=== PATIENT | female | born 1965 | race Caucasian/White ===

== ENCOUNTER 2021-04-02 10:48 | Emergency (ER) | payer MEDICAID, SELFPAY ==
--- NOTE | ~2021-04-02 | CT_ITS ---
EXAMINATION: CT LUMBAR SPINE WITHOUT CONTRAST CLINICAL INFORMATION: History of fall. Lumbar spine tenderness. COMPARISON: None TECHNIQUE: Noncontrast multidetector CT imaging examination of the lumbar spine was performed. Axial images are presented at 1.5 mm and 2 mm slice thickness. Coronal and sagittal reformatted images were generated and reviewed. This CT examination was performed using dose optimization techniques as appropriate, variously including the following: *Automated exposure control *Adjustment of mA and/or kV according to patient size (this includes techniques or standardized protocols for targeted exams where dose is matched to indication/reason for exam; i.e. extremities or head) *Use of iterative reconstruction technique DLP 1239 mGy-cm (total, for topograms, as well as CT imaging exams of cervical and lumbar spine) FINDINGS: There are 5 segmented lumbar vertebra. The lumbar vertebra have normal height and alignment. No fractures in the anterior or posterior elements. No focal lytic or blastic lesions. The disc spaces are maintained. The facet joints are unremarkable. Multilevel vertebral osteophyte formation of the lumbar spine. No evidence of spinal canal or neural foraminal stenosis. The sacrum and sacroiliac joints are normal. No acute soft tissue abnormalities. No paraspinal hematoma. The visualized retroperitoneal structures are unremarkable. Abdominal aorta is normal in caliber. No retroperitoneal hemorrhage. No para-aortic lymphadenopathy. CT/CT lumbar spine wo con IMPRESSION: * Mild spondylosis of the lumbar spine. * No acute abnormalities. No fracture or subluxation in the lumbar spine or sacrum.
--- NOTE | ~2021-04-02 | CT_ITS ---
EXAMINATION: CT CERVICAL SPINE WITHOUT CONTRAST CLINICAL INFORMATION: Fall injury. Cervical spine tenderness. COMPARISON: No priors. TECHNIQUE: Noncontrast CT of the cervical spine. Sagittal and coronal images as well as axial reconstructions through the disc spaces were provided. This CT examination was performed using dose optimization techniques as appropriate, variously including the following: *Automated exposure control *Adjustment of mA and/or kV according to patient size (this includes techniques or standardized protocols for targeted exams where dose is matched to indication/reason for exam; i.e. extremities or head) *Use of iterative reconstruction technique DLP: 1239 mGy-cm FINDINGS: There is reversal of the expected cervical lordosis. The occipital condyles are properly aligned on the C1 lateral masses. The C1-C2 lateral masses are properly aligned. The dens is intact. The atlantodens interval is preserved. Facets are normally aligned without evidence of perched or locked facets. Transverse processes are intact. Transverse foramina are intact. No evidence of listhesis. Vertebral body heights are preserved. Anterior marginal endplate and posterior marginal endplate osteophytes are noted at C5 and C6. Mild C5-C6 disc height loss. The remaining intervertebral disc spaces are maintained. No fracture is seen. No prevertebral soft tissue swelling. The spinal canal is grossly unremarkable within the limits of CT scanning technique. Level specific observations are as follows: Lung apices are clear. Visualized intracranial contents are unremarkable. Visualized skull base is intact. CT/CT cervical spine wo con IMPRESSION: 1. No acute traumatic fracture or listhesis of the cervical spine. 2. Reversal of expected and cervical lordosis. Mild C5-C6 spondylosis and degenerative disc disease
--- NOTE | ~2021-04-02 | XR_ITS ---
EXAMINATION: XR ELBOW, RIGHT CLINICAL INFORMATION: Fall. Pain COMPARISON: None TECHNIQUE: AP, lateral, and oblique views of the right elbow. FINDINGS: The bones and soft tissues are normal. No fracture or joint effusion. Alignment is anatomic. Joint spaces are maintained. XR/XR elbow RT 2V IMPRESSION: Normal right elbow.
[2021-04-02 10:54] VITALS: BP 134/90; PULSE 88; RESP 16; TEMP 36.7; O2SAT 97; BMI 36.6
--- NOTE | 2021-04-02 11:09 | PC.NURSE ---
pt requests pulmonary function technologist
--- NOTE | 2021-04-02 11:09 | ED.GENADULT ---
HPI - General Adult General Chief complaint: Fall Stated complaint: fall Time Seen by Provider: 04/02/21 11:09 Source: patient Mode of arrival: ambulatory Limitations: no limitations History of Present Illness HPI narrative: Patient is here today complaining of upper and lower back pain. Patient reports that she was shopping in the grocery store yesterday when she slipped on a grape and fell backwards. She reports hitting her upper back, sustaining abrasion to her right mid back, and hitting her right elbow. Denies hitting head. Complains of neck, right elbow and lower back pain. Denies any tingling sensation to upper or lower extremities, however reports to have radiating pain going down her legs. Denies any SOB, chest pain. Related Data Previous Rx's Medication Instructions Recorded cyclobenzaprine 10 mg PO BID PRN #10 tab 04/02/21 ibuprofen 800 mg PO Q8H PRN #20 tab 04/02/21 oxycodone 5 mg PO Q4-6H PRN #5 tab 04/02/21 Allergies Allergy/AdvReac Type Severity Reaction Status Date / Time dog dander [DOGS] Allergy Unknown RASH Unverified 08/12/20 14:58 dog dander Allergy Unknown Unverified 03/12/19 00:00 nut - unspecified [nut] Allergy Unknown RASH Unverified 08/12/20 14:58 pollen Allergy Unknown Unverified 03/12/19 00:00 CARPETS Allergy Unknown RASH Uncoded 08/12/20 14:58 Review of Systems Review of Systems: Constitutional : No Weight loss, No Fever, No Chills, No Night Sweats, No Fatigue, No Malaise ENT/Mouth : No Hearing loss, No Ear Pain, No Nasal Congestion, No Sinus Pain, No Hoarseness, No sore throat, No Rhinorrhea, No Swallowing Difficulty Eyes: No Eye Pain, No Swelling, No Redness, No Foreign Body, No Discharge, No Vision Changes Cardiovascular : No Chest Pain, No SOB, No Dyspnea on Exertion, No Orthopnea, No Edema, No Palpitations Respiratory : No Cough, No Sputum, No Wheezing, No Smoke Exposure, No Dyspnea Gastrointestinal : No Nausea, No Vomiting, No Diarrhea, No Constipation, No abdominal Pain, No Hematochezia, No Melena Genitourinary : no irregular bleeding, No Dysuria, No Urinary Frequency, No Hematuria, No Urinary Incontinence, No Urgency, No Flank Pain, No Urinary Flow Changes, No Hesitancy Musculoskeletal : No joint pain, No Myalgias, No Joint Swelling, neck pain and lower back pain Skin : No Skin Lesions, No rash, abrasion to her right upper back Neuro : No Weakness, No Numbness, No Paresthesias, No Loss of Consciousness, No Dizziness, No Headache Psych : No Anxiety/Panic, No Depression, No SI/HI/AH/VH, No Social Issues, Heme/Lymph: No Bruising, No Bleeding,No Lymphadenopathy Endocrine : No Polyuria, No Polydipsia, No Temperature Intolerance Yes all other systems are reviewed and are negative PMFSH Social History Social History Advance Directives: No Advance Directives Information Provided: No Patient : No Physical Exam Vital Signs: Vital Signs: Last Vital Signs Temp 98.8 F 04/02/21 13:29 Pulse 65 04/02/21 13:29 Resp 16 04/02/21 13:29 BP 119/66 04/02/21 13:29 Pulse Ox 98 04/02/21 13:29 Body Mass Index 36.6 Const: General: healthy appearing, no acute distress and well developed Nutritional Appearance: well nourished Orientation/consciousness: patient oriented x3 Neck: Neck: Yes normal visual inspection, Yes full ROM and Yes trachea midline Thyroid: Thyroid normal Resp: Auscultation: clear to auscultation bilaterally Cardio: Rate: regular rate Rhythm: regular rhythm GI: Inspection: Yes normal to inspection and No distended Palpation (GI): No hepatosplenomegaly present Auscultation: normal bowel sounds : General: Yes CVA tenderness Back/Spine/Pelvis: Back: CVA tenderness Cervical Spine: cervical ROM normal Thoracic/Lumbar Spine: lumbar spinal tenderness Skin: General skin exam: elasticity normal, turgor normal and dry skin Neuro: General: patient oriented x3 Extrem: General: Yes normal to inspection, Yes capillary refill normal and Yes other (Right elbow tenderness) Psych: Appearance: grossly normal Mental Status: mental status grossly normal Speech and movement: Normal speech and movement present and Clear speech present Affect: normal affect Attitude: cooperative Course Course Course Narrative: 55-year-old female here today after falling yesterday in the grocery store. Patient reports that she fell backwards slipping on a grape, hitting her back on a shelf, landing on her right elbow. Denies hitting head. Complaints of cervical and lumbar spine tenderness, with some radiation to her lower extremity. Denies any tingling sensation. Reevaluation(s) Reevaluation #1: Patient re-evaluated, no change from previous exam. Both CT scan of spine and lumbar negative for any Accute processes. We will send patient home with scripts for pain management. She can follow up with her PCP for further treatment and possible physical therapy. All results discussed with patient. Radiology reports given to patient so she can bring that to her PCP. She is agreeable to plan of care and verbalizes understanding of instructions. She was given the opportunity to ask questions and all questions answered. Discharge Plan Discharge Clinical Impression: Accident due to mechanical fall without injury, Back pain Patient Disposition: Home, Self-Care Instructions: Back Pain (ED), Fall Prevention (ED) Additional Instructions: You were seen here today after sustaining a fall at the grocery store. You were medicated with muscle relaxant. Your x-rays and your CT scans were all normal. You will be given script for anti-inflammatory (ibuprofen), Oxycodone and muscle relaxer (cyclobenzaprine). Please do not operate heavy machinery or drive while taking oxycodone or the muscle relaxer. Please follow-up with your PCP in 2-3 days. Please return to emergency department if your symptoms get worse or if you experience any other concerning symptoms. Prescriptions: New ibuprofen 800 mg tablet 800 mg PO Q8H PRN (Reason: pain) Qty: 20 RF: 0 oxycodone 5 mg tablet 5 mg PO Q4-6H PRN (Reason: pain) Qty: 5 RF: 0 cyclobenzaprine 10 mg tablet 10 mg PO BID PRN (Reason: muscle spasm) Qty: 10 RF: 0 Interventions: ED Discharge Assessment Last Done: 04/02/21 15:40 Discharge Date/Time: 04/02/21 15:41
--- NOTE | 2021-04-02 11:19 | PC.NURSE ---
+scrape saucedo right side of mid back
[2021-04-02] MEDS: Cyclobenzaprine HCl 10 MG TABLET PO (11:41)
[2021-04-02 13:29] VITALS: BP 119/66; PULSE 65; RESP 16; TEMP 37.1; O2SAT 98
--- NOTE | 2021-04-02 15:21 | PC.NURSE ---
[employer] [employer] ARIS AND PT AWARE ALL TEST RESULTS, AWAITING DC INSTRUCTIONS
== END 2021-04-02 15:41 | disposition home or self-care (01) ==
PROVIDERS: Emergency Provider Emergency Medicine
DX: S20.411A Abrasion of right back wall of thorax, initial encounter (principal); W18.31XA Fall on same level due to stepping on an object, initial encounter; M54.6 Pain in thoracic spine; M54.5 Low back pain; Y93.89 Activity, other specified; Y92.512 Supermarket, store or market as the place of occurrence of the external cause; Y99.9 Unspecified external cause status
CPT/HCPCS: 72125; 72131; 73070; 99284

== ENCOUNTER 2022-02-06 13:04 | Emergency (ER) | payer MEDICAID, SELFPAY ==
[2022-02-06 13:56] VITALS: BP 107/49; PULSE 84; RESP 17; TEMP 36.6; O2SAT 96; BMI 49.8
[2022-02-06 16:06] LABS: MANUAL DIFF FLAG NO
[2022-02-06 16:08] LABS: Basophils Percent Auto 0.3 % (0-2); Eosinophils Absolute Auto 0.1 X10*3/uL (0.0-0.4); Eosinophils Percent Auto 1.1 % (0-4); Hematocrit 44.1 % (37.0-47.0); Hemoglobin 13.7 g/dl (12.0-16.0); Imm Gran Abs Auto 0.02 X10*3/uL (0.00-0.03); Imm Gran Pct Auto 0.3 % (0.0-0.4); Lymphocytes Absolute Auto 2.3 X10*3/uL (1.2-4.9); Lymphocytes Percent Auto 35.3 % (20-40); Mean Corpuscular HGB Conc 31.1 g/dl (31.0-35.0); Mean Corpuscular Hemoglobin 25.5 pg (27.0-33.0); Mean Platelet Volume 10.2 fL (9.4-12.3); Monocytes Absolute Auto 0.8 X10*3/uL (0.1-1.2); Monocytes Percent Auto 12.7 % (2-11); Neutrophils Absolute Auto 3.2 x10*3/uL (2.0-8.3); Neutrophils Percent Auto 50.3 % (45-73); Platelet Count 225 X10*3/uL (160-400); Red Blood Count 5.38 X10*6/uL (4.20-5.50); Red Cell Distribution Width 13.8 % (11.0-16.0); White Blood Count 6.4 X10*3/uL (4.8-10.8)
[2022-02-06 16:34] LABS: Alanine Aminotransferase 65 U/L (0-31); Albumin Level 4.1 g/dL (3.5-5.0); Alkaline Phosphatase 85 U/L (39-117); Anion Gap 11 (12-20); Aspartate Amino Transferase 35 U/L (5-31); Bilirubin Total 0.3 mg/dL (0.0-1.0); Blood Urea Nitrogen 9 mg/dL (9-16); Calcium 8.5 mg/dL (8.4-10.2); Carbon Dioxide 26 mmol/L (22-29); Chloride 106 mmol/L (96-108); Estimated Glomerular Filt Rate > 60; Glucose Random 114 mg/dL (60-115); Potassium 3.9 mmol/L (3.3-5.1); Sodium 139 mmol/L (135-145); Total Protein 7.3 g/dL (6.5-8.0)
[2022-02-06 21:16] VITALS: BP 132/62; PULSE 71; RESP 16; TEMP 36.7; O2SAT 97
--- NOTE | 2022-02-06 21:16 | ED_ITS ---
HPI - Nausea/Vomiting/Diarrhea General Chief complaint: Nausea/Vomiting/Diarrhea Stated complaint: diarrhea fever vomiting Time Seen by Provider: 02/06/22 21:13 Source: patient Mode of arrival: ambulatory Limitations: no limitations History of Present Illness HPI Narrative: Patient is a 56 year old female presenting to the emergency department today with nausea, vomiting, and diarrhea that has resolved. Patient states that yesterday she had nausea, vomiting, and dirrhea. Patient states that she is still nauseous but the other symptoms have resolved. Patient states that the entirety of the rest of her family was sick with the same symptoms but they have gotten better. Patient denies any current dizziness, lightheadedness, abdominal pain, vomiting, fever, chills, blurry vision, double vision, loss of vision, chest pain, difficulty breathing, shortness of breath, back pain, night sweats, pain with urination, increased urinary frequency, increased urinary urgency, blood in her urine or stool, syncope or a near syncopal episode, recent trauma or falls, bowel incontinence, bladder incontinence, bowel retention, bladder retention, or any other complaints at this time. MD elicited complaint: nausea, vomiting and diarrhea Onset (ago): day(s) (1) Associated nausea: Yes Associated abdominal pain: No Location of pain: none Related Data Previous Rx's Medication Instructions Recorded cyclobenzaprine 10 mg tablet 10 mg PO BID PRN #10 tab 04/02/21 ibuprofen 800 mg tablet 800 mg PO Q8H PRN #20 tab 04/02/21 oxycodone 5 mg tablet 5 mg PO Q4-6H PRN #5 tab 04/02/21 ondansetron 4 mg disintegrating 4 mg PO Q8H 3 Days #9 tab 02/06/22 tablet Allergies Allergy/AdvReac Type Severity Reaction Status Date / Time dog dander [DOGS] Allergy Unknown RASH Unverified 08/12/20 14:58 dog dander Allergy Unknown Unverified 03/12/19 00:00 nut - unspecified [nut] Allergy Unknown RASH Unverified 08/12/20 14:58 pollen Allergy Unknown Unverified 03/12/19 00:00 CARPETS Allergy Unknown RASH Uncoded 08/12/20 14:58 Review of Systems Constitutional: Constitutional: Reports no additional constitutional complaints, Denies chills, Denies fever(s) and Denies night sweats Eyes: Eyes: Reports no additional eye complaints, Denies blurry vision, Denies change in vision, Denies diplopia, Denies eye discharge, Denies loss of vision and Denies eye pain ENT: Denies dizziness Cardiovascular: Cardiovascular: Reports no additional cardiovascular complaints, Denies chest pain, Denies lightheadedness, Denies Loss of Consciousness and Denies dyspnea Respiratory: Respiratory: Reports no additional respiratory complaints and Denies dyspnea Gastrointestinal: Gastrointestinal: Reports no additional gastrointestinal complaints, Denies abdominal pain, Denies melena, Denies hematochezia, Denies change in bowel habits, Denies change in stool character and Reports nausea Genitourinary: Genitourinary: Denies hematuria, Denies urinary frequency, Denies dysuria, Denies urinary incontinence, Denies urinary hesitancy and Denies urinary urgency Musculoskeletal: Musculoskeletal: Reports no additional musculoskeletal complaints, Denies numbness and Denies tingling Neurologic: Denies dizziness, Denies loss of vision, Denies numbness and Denies tingling Psychiatric: Psychiatric: Reports no additional psychiatric complaints Endocrine: Endocrine: Reports no additional endocrine complaints Hematologic/Lymphatic: Hematologic/Lymphatic: Reports no additional hematologic/lymphatic complaints Allergic/Immunologic: Allergic/Immunologic: Reports no additional allergic/immunologic complaints PMFSH Past Medical History Attestation statement: The following information was validated with the patient. Source: old records reviewed Medical History Active asthma Social History Social History Advance Directives: No Advance Directives Information Provided: No Physical Exam Vital Signs: Vital Signs: Last Vital Signs Temp 98.0 F 02/06/22 21:16 Pulse 71 02/06/22 21:16 Resp 16 02/06/22 21:16 BP 132/62 02/06/22 21:16 Pulse Ox 97 02/06/22 21:16 BMI result Body Mass Index 49.8 Const: General: cooperative, no acute distress, alert and awake Nutritional Appearance: well nourished Orientation/consciousness: patient oriented x3 Limitations: no limitations HENMT: Head: Yes normal to inspection and Yes atraumatic Ears: hearing grossly normal bilaterally and external ears normal General nose exam: Normal external nose present, no nasal discharge noted and no epistaxis Face and sinus: Yes normal facial exam, No abrasion and No laceration Mouth: Normal oral and palatal mucosa present, no drooling and no muffled voice Eyes: General: appearance normal, both eyes and all related structures Periorbital: periorbital findings normal Eyelids: Yes eyelids normal Co njunctivae: conjunctivae normal Pupils: Equal, round and reactive pupils present EOM: EOMs intact bilaterally Neck: Neck: Yes normal visual inspection, Yes full ROM and Yes no lymp hadenopathy Chest: Chest palpation & inspection: normal inspection of the chest Resp: Effort & Inspection: normal respiratory effort and able to speak in complete sentences Auscultation: clear to auscultation bilaterally Cardio: Rate: regular rate Rhythm: regular rhythm GI: Inspection: Yes normal to inspection Palpation (GI): Soft to palpation, not firm, nontender, no guarding and not rigid Neuro: General: patient oriented x3 and moves all extremities Cranial nerves: Yes Equal, round and reactive pupils present Cognition (Neuro): normal cognition Motor exam (neuro): 5/5 motor strength present throughout Sensory Exam: Normal double simultaneous stimulation for sensation Coordination: [id number] test normal Extrem: General: Yes normal to inspection, Yes full ROM and Yes capillary refill normal Psych: Appearance: grossly normal Mental Status: mental status grossly n ormal Affect: normal affect Attitude: cooperative Thought process: Normal thought process present Thought content: Normal thought content present Insight: Good insight present (Psych) MDM - Nausea/Vomiting/Diarrhea MDM Narrative Medical decision making narrative: Patient is a 56 year old female presenting to the emergency department today with nausea and resolved diarrhea and vomiting. Patient's physical exam was unremarkable. Patient's blood work was unremarkable. Patient's urine showed no acute process. I explained my physical exam findings as well as all test results to the patient. I answered all questions asked by the patient. Patient received PO Zofran which she stated helped her symptoms significantly. I stressed the importance of the patient taking her medication as prescribed. I stressed the importance of the patient following up with her primary care provider. I stressed the importance of the patient returning to the emergency department immediately if her symptoms were to worsen or if she were to develop any dizziness, shortness of breath, difficulty breathing, chest pain, blurry vision, loss of vision, nausea, vomiting, abdominal pain, fever, chills, back pain, or any other complaints. Patient verbalized agreement and understanding with this treatment plan and discharge. Differential Diagnosis Differential diagnosis: Likely gastroenteritis Medical Records Attestation: I reviewed the patient's medical records. Lab Data Attestation: I reviewed the patient's lab results. Result diagrams: 02/06/22 16:01 02/06/22 16:01 Labs: Lab Results 02/06/22 02/06/22 Range/Units 16:01 16:01 WBC 6.4 (4.8-10.8) X10*3/uL RBC 5.38 (4.20-5.50) X10*6/uL Hgb 13.7 (12.0-16.0) g/dl Hct 44.1 (37.0-47.0) % MCV 82.0 (80.0-98.0) fL MCH 25.5 L (27.0-33.0) pg MCHC 31.1 (31.0-35.0) g/dl RDW 13.8 (11.0-16.0) % Plt Count 225 (160-400) X10*3/uL MPV 10.2 (9.4-12.3) fL Immature Gran % (Auto) 0.3 (0.0-0.4) % Neut % (Auto) 50.3 (45-73) % Lymph % (Auto) 35.3 (20-40) % [place] % (Auto) 12.7 H (2-11) % Eos % (Auto) 1.1 (0-4) % Baso % (Auto) 0.3 (0-2) % Lymph # (Auto) 2.3 (1.2-4.9) X10*3/uL [place] # (Auto) 0.8 (0.1-1.2) X10*3/uL Eos # (Auto) 0.1 (0.0-0.4) X10*3/uL Baso # (Auto) 0.0 (0.0-0.2) X10*3/uL Abs Immat Gran (auto) 0.02 (0.00-0.03) X10*3/uL Absolute Neuts (auto) 3.2 (2.0-8.3) x10*3/uL Absolute Nucleated RBC 0.000 (0.0-0.012) X10*3/uL Nucleated RBC % (auto) 0.0 (0.0-0.2) /100WBC Sodium 139 (135-145) mmol/L Potassium 3.9 (3.3-5.1) mmol/L Chloride 106 (96-108) mmol/L Carbon Dioxide 26 (22-29) mmol/L Anion Gap 11 L (12-20) BUN 9 (9-16) mg/dL Creatinine 0.76 (0.5-1.4) mg/dL Estim Creat Clear Calc 122.0 Estimated GFR > 60 Random Glucose 114 (60-115) mg/dL Calcium 8.5 (8.4-10.2) mg/dL Total Bilirubin 0.3 (0.0-1.0) mg/dL AST 35 H (5-31) U/L ALT 65 H (0-31) U/L Alkaline Phosphatase 85 (39-117) U/L Total Protein 7.3 (6.5-8.0) g/dL Albumin 4.1 (3.5-5.0) g/dL Discharge Plan Discharge Clinical Impression: Gastroenteritis, Nausea & vomiting Patient Disposition: Home, Self-Care Instructions: Gastroenteritis (ED), Acute Nausea and Vomiting (ED), Enteritis (ED) Additional Instructions: Follow up with your primary care provider. Return to the emergency department immediately if your symptoms worsen or if you develop any dizziness, shortness of breath, difficulty breathing, chest pain, blurry vision, loss of vision, nausea, vomiting, abdominal pain, fever, chills, back pain, or any other complaints. Prescriptions: New ondansetron 4 mg tablet,disintegrating 4 mg PO Q8H 3 Days Qty: 9 0RF No Action ibuprofen 800 mg tablet 800 mg PO Q8H PRN (Reason: pain) Qty: 20 0RF oxycodone 5 mg tablet 5 mg PO Q4-6H PRN (Reason: pain) Qty: 5 0RF Rx Instructions: Patient may request fewer tablets than prescribed cyclobenzaprine 10 mg tablet 10 mg PO BID PRN (Reason: muscle spasm) Qty: 10 0RF Referrals: Physician,Unknown J [Primary Care Provider] - 2 days (Follow up with your primary care provider.) Interventions: ED Discharge Assessment Last Done: 02/06/22 21:30 Discharge Date/Time: 02/06/22 21:32 Print Language: Andorran
[2022-02-06] MEDS: Ondansetron ODT 4 MG TAB.RAPDIS TRANSLINGU (21:25)
== END 2022-02-06 21:32 | disposition home or self-care (01) ==
PROVIDERS: Emergency Provider Internal Medicine
DX: K52.9 Noninfective gastroenteritis and colitis, unspecified (principal); R11.2 Nausea with vomiting, unspecified
CPT/HCPCS: 36415; 80053; 85025; 99283; 99284

== ENCOUNTER 2022-06-21 12:33 | Outpatient (REF) | payer MEDICAID, SELFPAY ==
--- NOTE | ~2022-06-21 | US_ITS ---
EXAMINATION: US PELVIS CLINICAL INFORMATION: Postmenopausal bleeding. COMPARISON: None TECHNIQUE: Ultrasound of the pelvis is performed using both transabdominal and transvaginal transducers along with Doppler. Transvaginal imaging is performed due to inadequate visualization transabdominally. FINDINGS: UTERUS: The uterus is anteverted, anteflexed and measures 7.1 cm in length, 3.6 mL in AP and 3.8 cm in transverse dimension. The double wall endometrial thickness is not visualized well. The uterus is smooth in contour and has heterogeneous echogenicity. There is a hypoechoic lesion along the subserosal/intramural junction upper anterior body of uterus. It measures 1.8 x 1.6 x 1.6 cm. There is a second lesion seen in 2011 is not seen at this time. There are small nabothian cysts seen in the cervix. ADNEXA: The right ovary is visualized. There is normal color flow to the adnexa. There is no ovarian torsion. There is no pelvic ascites or fluid collection. Right ovary measures 1.8 x 2.1 x 1.4 cm and volume 2.8 mL. Previously it measured 2.8 x 1.6 x 1.7 cm. Left ovary is not visualized. US/US pelvic and transvaginal IMPRESSION: Heterogeneous-appearing uterus with a solitary fibroid. Previous fibroid in the right uterus is not seen at this time. Nabothian cysts in the cervix. Unremarkable right ovary. Left ovary is not seen.
== END 2022-06-21 12:34 | disposition home or self-care (01) ==
LOC: HO.US 12:33
PROVIDERS: Visit Provider Advanced Practice Midwife
DX: N95.0 Postmenopausal bleeding (principal)
CPT/HCPCS: 76830; 76856

== ENCOUNTER 2022-06-23 11:55 | Outpatient (REF) | payer MEDICAID, SELFPAY ==
--- NOTE | ~2022-06-23 | MM_ITS ---
EXAMINATION: MM SCREENING DIGITAL BREAST TOMOSYNTHESIS, BILATERAL CLINICAL INFORMATION: Screening. Asymptomatic. The lifetime risk of breast cancer based on the Tyrer-Cuzick Model is 11%. COMPARISON: Mammography: 08/19/2018, 08/02/2017, 03/01/2016, 02/17/2016 TECHNIQUE: Digital breast tomosynthesis is performed in both the craniocaudal and mediolateral oblique views along with computer-aided detection (CAD). Synthesized 2D images are generated from the tomosynthesis. FINDINGS: There are scattered areas of fibroglandular density (ACR BI-RADS breast composition Category b). There is fine fibronodular parenchymal pattern similar to prior exams. No significant mass or architectural abnormality or developing density. No abnormal calcifications. The axilla and skin contours are unremarkable. MM/MM tomosynthesis screening BI IMPRESSION: No mammographic evidence of malignancy. ASSESSMENT: BI-RADS 1: Negative RECOMMENDATION: Routine annual mammography screening. This patient's information was entered into a reminder system with a target due date for their next mammogram.
== END 2022-06-23 11:56 | disposition home or self-care (01) ==
LOC: HO.MAMMO 11:55
PROVIDERS: Visit Provider Advanced Practice Midwife
DX: Z12.31 Encounter for screening mammogram for malignant neoplasm of breast (principal)
CPT/HCPCS: 77063; 77067

== ENCOUNTER 2024-01-09 11:29 | Outpatient (REF) | payer MEDICAID, SELFPAY ==
--- NOTE | ~2024-01-09 | XR_ITS ---
EXAMINATION: XR KNEE, LEFT CLINICAL INFORMATION: Pain in left knee COMPARISON: None available. TECHNIQUE: Four views of the left knee. FINDINGS: No fracture or joint effusion. Alignment is anatomic. There is minimal marginal spurring cause the patella laterally and suprapatellar fullness due to small joint effusion. Joint spaces are maintained. No abnormal soft tissue calcification. XR/XR knee LT 4V IMPRESSION: Mild degenerative changes and small joint effusion
== END 2024-01-09 11:30 | disposition home or self-care (01) ==
LOC: HO.HHCX 11:29
PROVIDERS: Visit Provider Registered Nurse
DX: M25.562 Pain in left knee (principal)
CPT/HCPCS: 73564

== ENCOUNTER 2024-02-26 18:42 | Outpatient (REF) | payer MEDICAID, SELFPAY | END 2024-02-26 18:43 | disposition home or self-care (01) | LOC: HO.HHCLNP 18:42 | PROVIDERS: Visit Provider Nurse Practitioner Family | DX: L02.91 Cutaneous abscess, unspecified (principal) | CPT/HCPCS: 87070; 87077; 87186; 87205 ==

== ENCOUNTER 2024-08-08 12:53 | Outpatient (REF) | payer MEDICAID, SELFPAY ==
--- NOTE | ~2024-08-08 | MM_ITS ---
EXAMINATION: MM SCREENING DIGITAL BREAST TOMOSYNTHESIS, BILATERAL CLINICAL INFORMATION: Screening. Asymptomatic. COMPARISON: Mammography: Comparison is made with available priors TECHNIQUE: Digital breast mammography with tomosynthesis is performed in both the craniocaudal and mediolateral oblique views along with computer-aided detection (CAD). FINDINGS: The breasts are heterogeneously dense, which may obscure small masses (ACR BI-RADS breast composition Category c). There are no significant masses, abnormal calcifications, or other abnormalities. MM/MM tomosynthesis screening BI IMPRESSION: No mammographic evidence of malignancy. ASSESSMENT: BI-RADS BI-RADS 1 - Negative RECOMMENDATION: Routine annual mammography screening. 1 year F/U This examination should not preclude the clinical evaluation of a suspicious palpable abnormality. This patient's information was entered into a reminder system with a target due date for their next mammogram. Electronically signed by: Adela London DO 08/21/2024 08:29 PM EDT
== END 2024-08-08 12:54 | disposition home or self-care (01) ==
LOC: HO.MAMMO 12:53
PROVIDERS: PCP Registered Nurse; Visit Provider Registered Nurse
DX: Z12.31 Encounter for screening mammogram for malignant neoplasm of breast (principal)
CPT/HCPCS: 77063; 77067

== ENCOUNTER → 2024-08-08 13:30 | Outpatient (BNV) | payer MEDICAID, SELFPAY | PROVIDERS: PCP Registered Nurse; Visit Provider Internal Medicine | DX: Z12.31 Encounter for screening mammogram for malignant neoplasm of breast (principal) | CPT/HCPCS: 77063; 77067 ==

== ENCOUNTER 2024-09-11 12:41 | Emergency (ER) | payer MEDICAID, SELFPAY ==
--- NOTE | ~2024-09-11 | XR_ITS ---
EXAMINATION: XR CHEST CLINICAL INFORMATION: Cough COMPARISON: None available. TECHNIQUE: 2 views of the chest were obtained. FINDINGS: No significant abnormality is noted involving the heart, lungs, mediastinum, bony thorax or soft tissues. XR/XR chest 2V IMPRESSION: Unremarkable examination. Electronically signed by: Delano Cartagena MD 09/11/2024 04:10 PM EDT RP
--- NOTE | 2024-09-11 12:43 | ECG_ITS ---
Test Reason : CHEST PAIN Blood Pressure : / mmHG Vent. Rate : 065 BPM Atrial Rate : 065 BPM P-R Int : 176 ms QRS Dur : 074 ms QT Int : 410 ms P-R-T Axes : 042 006 068 degrees QTc Int : 426 ms Normal sinus rhythm Cannot rule out Anterior infarct (cited on or before 29-MAR-2020) ; could be related to body habitus and lead placement. Abnormal ECG When compared with ECG of 29-MAR-2020 14:42, No significant change was found Referred By: Generic ED Physician Electronically Signed By:CASSI WARD
[2024-09-11 13:13] VITALS: BP 113/47; PULSE 76; RESP 16; TEMP 36.2; O2SAT 96; BMI 37.3
--- NOTE | 2024-09-11 13:15 | ED.CHESTPAIN ---
HPI - Chest Pain General Chief Complaint: Chest Pain Stated Complaint: Chest pain Related Data Previous Rx's ?Medication ?Instructions ?Recorded cyclobenzaprine 10 mg tablet 10 mg PO BID PRN muscle spasm #10 04/02/21 tabs ibuprofen 800 mg tablet 800 mg PO Q8H PRN pain #20 tabs 04/02/21 oxycodone 5 mg tablet 5 mg PO Q4-6H PRN pain #5 tabs 04/02/21 ondansetron 4 mg disintegrating 4 mg PO Q8H 3 days #9 tabs 02/06/22 tablet Allergies Allergy/AdvReac Type Severity Reaction Status Date / Time dog dander [DOGS] Allergy Unknown RASH Verified 09/11/24 13:19 nut - unspecified [nut] Allergy Unknown RASH Verified 09/11/24 13:19 pollen extracts Allergy Unknown Unknown Verified 09/11/24 13:19 CARPETS Allergy Unknown RASH Uncoded 08/12/20 14:58 PMFSH Past Medical History Medical History Active asthma Social History Social History Advance Directives: No Advance Directives Information Provided: No Physical Exam Vital Signs: Vital Signs: Last Vital Signs Temp 97.2 F 09/11/24 13:13 Pulse 76 09/11/24 13:13 Resp 16 09/11/24 13:13 BP 113/47 L 09/11/24 13:13 Pulse Ox 96 09/11/24 13:13 O2 Del Method Room Air 09/11/24 13:13 BMI result Body Mass Index 37.3 Course Course Course Narrative: This is a Rapid Medical Examination (RME) performed by Farrah Hernandez PA-C in triage. Full HPI, ROS, assessment and treatment plan per primary provider in the Main ED. 58-year-old Malay-speaking female GERD and seasonal allergies who presents to the ER for evaluation of stabbing left sided chest pain that started a couple of days ago and subsided. now she is reporting intermittent right sided electricity feeling in the chest that started last night. no associated SOB or nausea but she reports intermittent dizziness. no history of similar symptoms in the past. VSS in triage. nontender chest wall. RRR and lungs are clear, no distress. no noted peripheral edema. speech and cognition are normal. Plan: EKG, CXR, labs Medical Decision Making Lab Data 09/11/24 13:42 09/11/24 13:42 Labs: Lab Results 09/11/24 09/11/24 Range/Units 13:42 13:45 WBC 7.3 (4.8-10.8) X10*3/uL RBC 5.08 (4.20-5.50) X10*6/uL Hgb 13.2 (12.0-16.0) g/dl Hct 42.1 (37.0-47.0) % MCV 82.9 (80.0-98.0) fL MCH 26.0 L (27.0-33.0) pg MCHC 31.4 (31.0-35.0) g/dl RDW 13.8 (11.0-16.0) % Plt Count 247 (160-400) X10*3/uL MPV 10.7 (9.4-12.3) fL Immature Gran % (Auto) 0.1 (0.0-0.4) % Neut % (Auto) 58.7 (45-73) % Lymph % (Auto) 32.7 (20-40) % [place] % (Auto) 6.9 (2-11) % Eos % (Auto) 1.2 (0-4) % Baso % (Auto) 0.4 (0-2) % Lymph # (Auto) 2.4 (1.2-4.9) X10*3/uL [place] # (Auto) 0.5 (0.1-1.2) X10*3/uL Eos # (Auto) 0.1 (0.0-0.4) X10*3/uL Baso # (Auto) 0.0 (0.0-0.2) X10*3/uL Abs Immat Gran (auto) 0.01 (0.00-0.03) X10*3/uL Absolute Neuts (auto) 4.3 (2.0-8.3) x10*3/uL Absolute Nucleated RBC 0.000 (0.0-0.012) X10*3/uL Nucleated RBC % (auto) 0.0 (0.0-0.2) /100WBC Sodium 141 (135-145) mmol/L Potassium 4.5 (3.3-5.1) mmol/L Chloride 108 (96-108) mmol/L Carbon Dioxide 27 (22-29) mmol/L Anion Gap 11 L (12-20) BUN 10 (9-16) mg/dL Creatinine 0.75 (0.5-1.4) mg/dL Estim Creat Clear Calc 85.5 Estimated GFR > 60 Random Glucose 117 H (60-115) mg/dL Calcium 9.5 D (8.4-10.2) mg/dL Magnesium 2.2 (1.6-2.6) mg/dL Total Bilirubin 0.4 (0.0-1.0) mg/dL Direct Bilirubin 0.2 (0.0-0.5) mg/dL AST 19 (5-31) U/L ALT 25 (0-31) U/L Alkaline Phosphatase 67 (39-117) U/L Troponin I High Sens 3.3 (<3.5-17.0) ng/L Total Protein 7.2 (6.5-8.0) g/dL Albumin 4.3 (3.5-5.0) g/dL Urine Color Yellow Urine Appearance Clear Urine pH 5.5 (5.0-9.0) Ur Specific [place] 1.025 (1.005-1.025) Urine Protein Negative (Neg-Trace) mg/dL Urine Glucose (UA) Negative (Negative) mg/dL Urine Ketones Negative (Negative) mg/dL Urine Blood Negative (Negative) Urine Nitrite Negative (Negative) Ur Leukocyte Esterase Negative (Negative) Influenza Type A (PCR) NEGATIVE (Negative) Influenza Type B (PCR) NEGATIVE (Negative) RSV RNA Qual (PCR) NEGATIVE (Negative) SARS-CoV-2 RNA (RT-PCR) NEGATIVE (Negative) Discharge Plan Discharge Clinical Impression: Chest pain Qualifiers: Chest pain type: unspecified Qualified Code(s): R07.9 - Chest pain, unspecified Patient Disposition: Left W/O Completing Treatment Prescriptions: No Action ibuprofen 800 mg tablet 800 mg PO Q8H PRN (Reason: pain) Qty: 20 0RF oxycodone 5 mg tablet 5 mg PO Q4-6H PRN (Reason: pain) Qty: 5 0RF Rx Instructions: Patient may request fewer tablets than prescribed cyclobenzaprine 10 mg tablet 10 mg PO BID PRN (Reason: muscle spasm) Qty: 10 0RF ondansetron 4 mg tablet,disintegrating 4 mg PO Q8H 3 Days Qty: 9 0RF Discharge Date/Time: 09/11/24 16:51
[2024-09-11 13:47] LABS: MANUAL DIFF FLAG NO
[2024-09-11 13:53] LABS: Basophils Percent Auto 0.4 % (0-2); Eosinophils Absolute Auto 0.1 X10*3/uL (0.0-0.4); Eosinophils Percent Auto 1.2 % (0-4); Hematocrit 42.1 % (37.0-47.0); Hemoglobin 13.2 g/dl (12.0-16.0); Imm Gran Abs Auto 0.01 X10*3/uL (0.00-0.03); Imm Gran Pct Auto 0.1 % (0.0-0.4); Lymphocytes Absolute Auto 2.4 X10*3/uL (1.2-4.9); Lymphocytes Percent Auto 32.7 % (20-40); Mean Corpuscular HGB Conc 31.4 g/dl (31.0-35.0); Mean Corpuscular Volume 82.9 fL (80.0-98.0); Mean Platelet Volume 10.7 fL (9.4-12.3); Monocytes Absolute Auto 0.5 X10*3/uL (0.1-1.2); Monocytes Percent Auto 6.9 % (2-11); Neutrophils Absolute Auto 4.3 x10*3/uL (2.0-8.3); Neutrophils Percent Auto 58.7 % (45-73); Platelet Count 247 X10*3/uL (160-400); Red Blood Count 5.08 X10*6/uL (4.20-5.50); Red Cell Distribution Width 13.8 % (11.0-16.0); White Blood Count 7.3 X10*3/uL (4.8-10.8)
[2024-09-11 13:59] LABS: Appearance Urine Clear; Color Urine Yellow; Glucose Urine UA Negative (Negative); Leukocyte Esterase Urine Negative (Negative); Nitrite Urine Negative (Negative); PH 5.5 (5.0-9.0); Specific Gravity - Urine 1.025 (1.005-1.025); Urine Blood Negative (Negative); Urine Ketones Negative (Negative); Urine Protein Negative (Neg-Trace)
[2024-09-11 14:07] LABS: Alanine Aminotransferase 25 U/L (0-31); Albumin Level 4.3 g/dL (3.5-5.0); Alkaline Phosphatase 67 U/L (39-117); Anion Gap 11 (12-20); Aspartate Amino Transferase 19 U/L (5-31); Bilirubin Direct 0.2 mg/dL (0.0-0.5); Bilirubin Total 0.4 mg/dL (0.0-1.0); Blood Urea Nitrogen 10 mg/dL (9-16); Calcium 9.5 mg/dL (8.4-10.2); Carbon Dioxide 27 mmol/L (22-29); Chloride 108 mmol/L (96-108); Creatinine Clr Calc Pharmacy 85.5; Estimated Glomerular Filt Rate > 60; Glucose Random 117 mg/dL (60-115); Magnesium 2.2 mg/dL (1.6-2.6); Potassium 4.5 mmol/L (3.3-5.1); Sodium 141 mmol/L (135-145); Total Protein 7.2 g/dL (6.5-8.0)
[2024-09-11 14:13] LABS: Troponin-I High Sensitivity 3.3 ng/L (<3.5-17.0)
[2024-09-11 14:38] LABS: Influenza A PCR NEGATIVE (Negative); Influenza B PCR NEGATIVE (Negative); Resp Syncy Virus RNA Qual PCR NEGATIVE (Negative); SARS COV2 PCR INHOUSE NEGATIVE (Negative)
== END 2024-09-11 16:51 | disposition left against medical advice (07) ==
PROVIDERS: Physician Assistant; Emergency Provider Emergency Medicine
DX: R07.89 Other chest pain (principal); Z79.899 Other long term (current) drug therapy; Z03.818 Encounter for observation for suspected exposure to other biological agents ruled out
CPT/HCPCS: 0241U; 36415; 71046; 80048; 80076; 81003; 83735; 84484; 85025; 93005; 99283

== ENCOUNTER → 2024-09-11 12:43 | Outpatient (BNV) | payer MEDICAID, SELFPAY | PROVIDERS: Visit Provider Internal Medicine | DX: R94.31 Abnormal electrocardiogram [ECG] [EKG] (principal) | CPT/HCPCS: 93010 ==

== ENCOUNTER 2024-09-25 17:52 | Outpatient (REF) | payer MEDICAID, SELFPAY ==
[2024-09-26 10:21] LABS: HPV 16,18/45 See PAP report
[2024-10-06 05:33] LABS: C. trachomatis RNA TMA Not Detected (Not Detected); N. gonorrhoeae RNA TMA Not Detected (Not Detected); Trichomonas (NAAT) Not Detected (Not Detected)
== END 2024-09-25 17:53 | disposition home or self-care (01) ==
LOC: HO.HHCLNP 17:52
PROVIDERS: Visit Provider Advanced Practice Midwife
DX: N95.0 Postmenopausal bleeding (principal); Z11.3 Encounter for screening for infections with a predominantly sexual mode of transmission
CPT/HCPCS: 36415; 87491; 87591; 87624; 87661; 88175

== ENCOUNTER 2025-08-13 12:30 | Outpatient (REF) | payer MEDICAID, SELFPAY ==
--- OUTSIDE RECORDS SUMMARY | 2025-08-13 14:38 | XMS_ITS | Encounter Summary ---
Author Organization [employer] Address [address] [place] [address] Care Team Providers Care Bread Wrapper Operator Name Role Phone Jody Wright SHADE MAKER Primary Care Provider Encounter Details Date Type Department Care Team ([facility] st Contact Info) Description 03/23/2025 Orders Only [facility] [address] [place] [address] Meghna Sethi Social History Tobacco Use Types Packs/Day Years Used Date Smoking Tobacco: Never Passive Smoke Exposure: Never Smokeless Tobacco: Never Alcohol Use Standard Drinks/Week Comments Never 0 (1 standard drink = 0.6 oz pur e alcohol) Depression Answer Date Recorded Patient Health Questionnaire-9 Score 0 04/09/2024 Patient Health Questionnaire-9 Score 0 04/09/2024 Last PHQ-9: Questionnaire Data Not on file 0 04/09/2024 Housing Stability Answer Date Recorded What is your housing situation today? I have narendra cheema 09/10/[address] you li ve. Do you have problems with any of the following? None of the above 09/10/2023 Food Insecurity Answer Date Recorded Within the past 12 months, y ou worried that your food would run out before you got money to buy more: Never True 09/10/2023 Within the past 12 months,th e food you bought just didn't last and you didn't have enough money to get more: Never True Transportation Answer Date Recorded In the past 12 months, has l ack of transportation kept you from medical appts, meetings, work or from getting things needed for daily living? No 09/10/2023 Utilities Answer Date Recorded In the past 12 months, has t he electric, gas, oil or water company threatened to shut off services in your home? No 09/10/2023 Depression Answer Date Recorded Patient Health Questionnaire-2 Score 0 04/09/2024 Comments No Sex and Gender Information Value Date Recorded Sex Assigned at Female 09/25/2022 10:15 AM EDT Legal Sex Female 10:15 AM EDT Gender Identity Female 09/25/2022 10:15 AM EDT Sexual Orientation Straight 09/25/2022 10 :15 AM EDT documented as of this encounter Plan of Treatment Upcoming Encounters Date Type Department Care Team (Late st Contact Info) Description 08/14/2025 1:00 PM EDT Office Visit [facility] [address] [place] [phone] Jody Wright FNP [address] [place] [address] 09/29/2025 1:45 PM EST Office Visit [facility] [address] [place] [phone] Renita Story CNM [address] [place] [address] documented as of this encounter Procedures Procedure Name Priority Date/Time Associated Diagnosis Comments HPV MRNA E6/E7 REFLEX TO HPV 16, 18/45 Routine 09/25/2024 12:00 AM EDT documented in this encounter Results * HPV mRNA E6/E7 w/Reflex to HPV Genotypes 16, 18/45 (09/25/2024 12:00 AM EDT) us Historical Provider LAB CYTOLOGY ORDERABLES F inal Result [facility] [address] [place] [address] [phone] documented in this encounter Visit Diagnoses Not on filedocumented in this encounter Additional Health Concerns Assessment Noted Time PHQ-9 Depression Total Score: 0 04/09/20 24 10:34 AM EDT documented as of this encounter Care Teams Bread Wrapper Operator Relationship Specialty Start Date End Date Jody Wright FNP [address] [place] [phone] PCP - General Family Medicine 07/24/22 documented as of this encounter
--- OUTSIDE RECORDS SUMMARY | 2025-08-13 14:38 | XMS_ITS | Encounter Summary ---
Author Organization [employer] Address [address] [place] [address] Care Team Providers Care Counselor Marriage And Family Name Role Phone [facility] Primary Care Provider [phone] Reason for Visit * Reason Onset Date Comments chart prep 08/13/2025 Encounter Details Date Type Department Care Team ([facility] st Contact Info) Description 08/13/2025 Telephone [facility] [address] [place], [place] [phone] [facility] [address] [place], [place] [phone] chart prep Social History Tobacco Use Types Packs/Day Years [...] AM EDT documented as of this encounter Miscellaneous Notes * Telephone Encounter - Val Mejia [place] - 08/13/2025 10:45 AM EDT Chart Prep Labs: not applicable Images: not done( No show to US pelvic 09/26/24) Mammo schedule for 08/13/25 will check for report. Referrals: complete Vaccines due: Covid, Flu, PCV20, RSV, and Zoster Screenings: colonoscopy and mammogram Overdue care gaps: A1c, Glucose, SBIRT, SDOH, PHQ-9, EDWIGE-7, and Disability screen documented in this encounter Plan of Treatment Upcoming Encounters Date Type Department Care Team (Late st Contact Info) Description 08/14/2025 1:00 PM EDT Office Visit [facility] [address] [place] [phone] oJdy Wright FNP [address] [place] [address] 09/29/2025 1:45 PM EST Office Visit [facility] [address] [place] [address] Renita Story CNM [address] [place] [address] documented as of this encounter Visit Diagnoses Not on filedocumented in this encounter Additional Health Concerns Assessment Noted Time PHQ-9 Depression Total Score: 0 04/09/20 24 10:34 AM EDT documented as of this encounter Care Teams Counselor Marriage And Family Relationship Specialty Start Date End Date Jody Wright FNP [address] [place] [address] PCP - General Family Medicine 07/24/22 documented as of this encounter
--- OUTSIDE RECORDS SUMMARY | 2025-08-13 14:38 | XMS_ITS | Clinical Summary ---
Author Organization [employer] Address [address] [facility] [address] [place] [address] Care Team Providers Care Agriculture Instructor Name Role Phone Jody Wright [facility] Primary Care Provider [phone] Allergies No known active allergies Medications lidocaine (Lidoderm) 5 % patchIndication s:Chronic right-sided low back pain without sciatica Apply 1 patch topically in the morning. Remove & discard patch within 12 hours or as directed by . 30 patch 1 01/18/20 23 Active bacitracin-poly myxin b (Polysporin) ointment Apply topically 2 times daily. 15 g 03/23/20 23 Active hydrocortisone (Anusol-HC) 2.5 % rectal creamIndication s:Rectal itching Apply topically twice daily for two weeks 28 g 07/10/20 23 Active hydrocortisone 2.5 % creamIndication s:Rash Apply topically 2 times daily. 3.5 g 1 04/09/20 24 Active rosuvastatin (Crestor) 10 MG tabletIndicatio ns:Type 2 diabetes mellitus with hyperglycemia, without long-term current use of insulin ([facility]) Take 1 tablet (10 mg) by mouth Once per day. 30 tablet 11 04/09/20 24 Active EPINEPHrine (Epipen) 0.3 MG/0.3ML injection syringe Inject 0.3 mL (0.3 mg) as directed 1 (one) time for 1 dose. use as directed for allergic reaction and then call 911 0.3 mL 04/23/20 24 Active loratadine (Claritin) 10 MG tabletIndicatio ns:Mild intermittent asthma without complication,Se asonal allergies TAKE 1 TABLET BY MOUTH EVERY DAY 90 tablet 1 12/03/19 25 Active albuterol 108 (90 Base) MCG/ACT inhalerIndicati ons:Mild intermittent asthma without complication Inhale 2 puffs every 6 (six) hours if needed for wheezing. 18 g 11 03/17/20 25 026 Active famotidine (Heartburn Relief) 10 MG tabletIndicatio ns:Dyspepsia TAKE 1 TABLET BY MOUTH TWO TIMES EVERY DAY NEEDED 180 tablet 1 04/27/20 25 Active fluticasone (Flonase) 50 MCG/ACT nasal sprayIndication s:Sore throat,Mild intermittent asthma without complication SPRAY 1 SPRAY INTO EACH NOSTRIL TWICE A DAY. SHAKE GENTLY. BEFORE FIRST USE, PRIME PUMP. AFTER USE, CLEAN TIP AND REPLACE CAP. 48 mL 06/12/20 25 Active Nirmatrelvir&Ri tonavir 300/100 (Paxlovid, 300/100,) 20 x 150 MG & 10 x 100MG tablet therapy packIndications :COVID Take 1 Dose by mouth 2 times daily. 10 each 07/04/20 25 Active levocetirizine (Xyzal) 5 MG tabletIndicatio ns:Environmenta l and seasonal allergies Take 1 tablet (5 mg) by mouth Once per day. 90 tablet 3 07/23/20 25 Active acetaminophen (Tylenol Extra Strength) 500 MG tabletIndicatio ns:COVID Take 2 tablets (1,000 mg) by mouth every 8 (eight) hours if needed for moderate pain for up to 10 days. 30 tablet 07/04/20 25 025 levocetirizine (Xyzal) 5 MG tablet Take 1 tablet by mouth Once per day. 04/17/20 25 025 Discontinued(Re order (will not trigger notification to Pharmacy)) Active Problems Problem Noted Date Diagnosed Date History of COVID-19 07/04/2025 Assessment & Plan (07/04/2025 10:14 AM EDT): Advised to drink plenty of fluids and rest I will prescribe for patient Paxlovid, medication side effects and directions with other medications were reviewed with her, she tells me she is not taking rosuvastatin at all she stopped it a long time ago I prescribed acetaminophen to be taken as needed ED precautions were reviewed with patient Type 2 diabetes mellitus wit h hyperglycemia, without long-term current use of insulin 08/01/2023 Overview (09/27/2023): Diet controlled only BMP: 04/2023 Microalbumin: Pending Foot Exam: 08/2023- Risk 0 Eye Exam: Discuss at follow up Lipid panel: 04/2023 ASCVD: 4.6% Statin: No, will discuss initiating moderate intensity at follow up ASA: No LYUDMILA/ARB: No Encouraged regular aerobic exercise for improved glycemic control Encouraged daily foot checks Encouraged lean protein snacks and to avoid foods high in sugar and simple carbohydrates Treatment Goals: A1c goal: <7% FBG goal: <130 2 hour post prandial goal: <180 Assessment & Plan (09/27/2023 10:39 AM EDT): Lab Results Component Value Date HGBA1C 6.4 (A) 09/10/2023 Well controlled Microalbumin ordered Assessment & Plan (08/01/2023 12:14 PM EDT): Discussed treatment options with patient including metformin or GLP-1. Pt declines at this time. Prefers to trial dietary changes. Accepts referral to nutrition. If no improvement in A1c at follow up pt agrees to start medication at this time. Healthcare maintenance 07/10/2023 Overview (07/10/2023): Mammo: [facility] a few months ago , need records Pap: [facility], need records C-scope: [facility] [place], need records Assessment & Plan (09/27/2023 10:39 AM EDT): - Will request records - Accepts flu shot - Declines COVID Environmental and seasonal allergies 05/15/2023 Assessment & Plan (03/17/2025 3:00 PM EDT): Add flonase Obesity (BMI 30-39.9) 02/13/2019 Mild intermittent asthma 07/16/2018 Overview (07/10/2023): Well controlled Albuterol Loratidine Assessment & Plan (03/17/2025 2:59 PM EDT): Resume albuterol recent URI symptoms correlate with weather change, Poct covid, strep and influenza neg Pt is already established with Cristina crespo albtuerol Assessment & Plan (09/27/2023 10:37 AM EDT): Well controlled Continue current regimen Letter provided to continue AC use in apartment for symptom control Vitamin D deficiency 07/16/2018 Chronic low back pain 03/12/2018 External hemorrhoids 05/13/2012 Resolved Problems Problem Noted Date Diagnosed Date Resolved Date Sore throat 03/17/2025 07/09/2025 Acute cough 03/17/2025 07/09/2025 Assessment & Plan (04/15/2025 9:10 AM EDT): Uri vs cough variant asthma, Return to clinic for worsening symptoms or failure to resolve Trichomonas infection 05/30/20232022 Candidal intertrigo 05/18/2023 07/10/20 Assessment & Plan (05/18/2023 3:10 PM EDT): Maintain area dry and clean [place] 07/16/2018 07/10/2023 Encounters Date Type Department Care Team Description 08/13/[address] [facility] [address] [place] [phone] Jody Wright FNP chart prep 07/22/[address] [facility] [address] [place] [phone] Jody Wright FNP Environmental and seasonal allergies 07/10/[address] [facility] [address] [place] [phone] Remedios Porras MA 07/09/2025 1:20 PM EDT Office Visit [facility] [address] [place] [address] Barbara Eason DO COVID-19 07/09/2025 Travel 07/08/[address] [facility] [address] [place] [address] Jody Wright FNP Nurse Triage 07/04/2025 10:00 AM EDT Office Visit [facility] [address] [place] [address] Vangie Sanchez MD COVID (Primary Dx); Sore throat 07/04/2025 Travel 07/03/[address] [facility] [address] [place] [phone] [facility] Nurse Triage 06/26/[address] [facility] [address] [place] [phone] [facility] Appointment Request 06/26/2025 Travel 06/12/[address] [facility] [address] [place] [address] Arely Poe, CLAIRE Sore throat; Mild intermittent asthma without complication from Last 3 Months Immunizations Immunization Administration Dates Next Due Influenza injectable quadriv alent preservative free 09/10/2023,02/13/2019,09/04/2017 Influenza, IIV3, injectable 10/02/2011 Influenza, Split (incl. justo fied surface antigen) 12/23/2012 Tdap 07/16/2018 Family History Medical History Relation Name Comments Diabetes type II Brother Heart disease Brother Diabetes type II Father Heart disease Mother Breast cancer Mother's Sister Diabetes type II Sister Colon cancer Neg Hx Relation Name Status Comments Brother Father Mother Mother's Sister Sister Social History Tobacco Use Types Packs/Day Years Used Date Smoking Tobacco: Never Passive Smoke Exposure: Never Smokeless Tobacco: Never Tobacco Cessation:Counseling Given: Not Answered Alcohol Use Standard Drinks/Week Comments Never 0 [...] the past 12 months, has t he [employer], gas, oil or water company threatened to shut off services in your home? No 09/10/2023 Depression Answer Date Recorded Patient Health Questionnaire-2 Score 0 04/09/2024 Comments No Sex and Gender Information Value Date Recorded Sex Assigned at Female 09/25/2022 10:15 AM EDT Legal Sex Female 10:15 AM EDT Gender Identity Female 09/25/2022 10:15 AM EDT Sexual Orientation Straight 09/25/2022 10 :15 AM EDT Last Filed Vital Signs Vital Sign Reading Time Taken Comments Blood Pressure 133/66 07/09/2025 12:59 PM EDT Pulse 79 07/09/2025 12:59 PM EDT Temperature 36.7 C (98.1 F) 07/09/2025 12:59 PM EDT Respiratory Rate 16 07/09/2025 12:59 PM EDT Oxygen Saturation 97% 07/09/2025 12:59 PM EDT Inhaled Oxygen Concentration - - Weight 92.5 kg (204 lb) 07/09/2025 12:59 PM EDT Height 165.1 cm (5' 5 ) 07/04/2025 9:44 AM EDT Body Mass Index 33.95 07/04/2025 9:44 AM EDT Plan of Treatment Upcoming Encounters Date Type Department Care Team (Late st Contact Info) Description 08/14/2025 1:00 PM EDT Office Visit [facility] [address] [place] [phone] [place] Jody, [address] [address] 09/29/2025 1:45 PM EST Office Visit [facility] [address] [place] [phone] Pepito Gonzalez, CNM [address] [place] [address] Health Maintenance Due Date Last Done Comments CT Colonography 1965 Colonoscopy 1965 Colorectal Cancer Screening 1965 FIT DNA/Cologuard 1965 FIT 1965 FOBT 1965 Sigmoidoscopy 1965 Disability Screening 1964 Alcohol/Substance Use Screening 1976 Diabetes: Urine Protein Screening 1983 Pneumococcal Vaccine: 50+ Years (1 of 2 - PCV) 1983 Zoster Vaccines (1 of 2) 2014 Lipid Panel 05/21/2024 05/21/2023 SDOH Screening 05/21/2024 05/21/2023 Diabetes: Foot Exam 09/10/2024 09/10/2023, 09/10/2023, 09/10/2023, Additional history exists Diabetes: Hemoglobin A1C 10/10/2024 024, 01/09/2024, 09/10/2023, Additional history exists RSV Patients and Patients Aged 60 years or older (1 - Risk 60-74 years 1-dose series) 2024 Depression Screening 04/09/2025 04/09/2024, 04/09/20 24 COVID-19 Vaccine ( season) 2025 Influenza Vaccine (#1) 2025 , 02/13/2019, 09/04/2017, Additional history exists Mammogram 08/08/2025 08/08/2024, 07/07/2022, 08/20/2018 Eye Exam 03/26/2026 03/26/2024 Tobacco Screening 07/09/2026 07/09/2025 Cervical Cancer Screening 09/25/2027 HPV/Cotest 09/25/2027 09/25/2024, 05, 08/06/2018 Pap Smear 09/25/2027 09/25/2024, 04/04/2022 DTaP/Tdap/Td Vaccines (2 - Td or Tdap) 07/16/2028 07/16/2018 HIV Screening Completed 05/21/2023 Hepatitis C Screening Completed 05/21/2023 HIB Vaccines Aged Out No longer eligi ble based on patient's age to complete this topic HPV Vaccines Aged Out No longer eligi ble based on patient's age to complete this topic Hepatitis A Vaccines Aged Out No long er eligible based on patient's age to complete this topic Hepatitis B Vaccines Aged Out No long er eligible based on patient's age to complete this topic IPV Vaccines Aged Out No longer eligi ble based on patient's age to complete this topic Meningococcal B Vaccine Aged Out No l onger eligible based on patient's age to complete this topic Meningococcal Vaccine Aged Out No bianca yves eligible based on patient's age to complete this topic RSV under 20 months Aged Out No longe r eligible based on patient's age to complete this topic Rotavirus Vaccines Aged Out No longer eligible based on patient's age to complete this topic Procedures Procedure Name Priority Date/Time Associated Diagnosis Comments POCT RAPID COVID ANTIGEN Routine 07/09/2025 1:33 PM EDT COVID-19 POCT INFLUENZA B (ID NOW RAPID MOLECULAR) Routine 07/04/2025 10:13 AM EDT Sore throat POCT INFLUENZA A (ID NOW RAPID MOLECULAR) Routine 07/04/2025 10:12 AM EDT Sore throat POC SHAHID ID NOW STREP A Routine 07/04/2025 9:50 AM EDT Sore throat POCT RAPID COVID ANTIGEN Routine 07/04/2025 9:48 AM EDT Sore throat PAP SMEAR Routine 09/25/2024 1:52 PM EDT Cervical cancer screening Postmenopausal bleeding HPV MRNA E6/E7 REFLEX TO HPV 16, 18/45 Routine 09/25/2024 12:00 AM EDT BI MAMMOGRAM SCREENING TOMOSYNTHESIS BILATERAL Routine 08/08/2024 1:00 PM EDT Breast cancer screening by mammogram POCT GLYCATED HEMOGLOBIN, TOTAL Routine 04/09/2024 10:36 AM EDT Type 2 diabetes mellitus with hyperglycemia, without long-term current use of insulin (CMS/HCC) HEPATITIS C AB W/REFL TO HCV RNA, QN, PCR Routine 05/21/2023 2:52 PM EDT Class 2 obesity due to excess calories without serious comorbidity with body mass index (BMI) of 35.0 to 35.9 in adult HIV 1/2 ANTIGEN/ANTIBODY, FOURTH GENERATION W/RFL Routine 05/21/2023 2:52 PM EDT Class 2 obesity due to excess calories without serious comorbidity with body mass index (BMI) of 35.0 to 35.9 in adult LIPID PANEL, STANDARD Routine 05/21/2023 2:52 PM EDT Class 2 obesity due to excess calories without serious comorbidity with body mass index (BMI) of 35.0 to 35.9 in adult from Last 3 Months or Most Recently Relevant to Health Maintenance Results * POCT Rapid COVID Ag (07/09/2025 1:33 PM EDT) Only the most recent of2 resultswithin the time period is included. Rapid COVID Ag Negative Swab 07/09/2025 1:33 PM EDT us Barbara Eason DO POINT OF CARE TEST ENTER/HELGA T ORDERABLES Final Result * POCT Rapid Influenza B SHAHID ID NOW (07/04/2025 10:13 AM EDT) Influenza B Negative Negative, Indeterminate [facility] QC Media Lot # [id number] [facility] Lot# Expiration Date [facility] Swab 07/04/2025 10:1 3 AM EDT us Vangie Knott MD POINT OF CARE TEST EN TER/EDIT ORDERABLES Final Result [facility] [address] [place] [address] [phone] * POCT Rapid Influenza A SHAHID ID NOW (07/04/2025 10:12 AM EDT) Pathologist [facility] Influenza A Negative Negative, Indeterminate [facility] QC Media Lot # [id number] [facility] Lot# Expiration Date [address] [facility] Swab 07/04/2025 10:1 2 AM EDT Vangie Knott MD POINT OF CARE TEST EN TER/EDIT ORDERABLES Final Result [facility] [address] [place] [phone] * POCT Rapid Strep A SHAHID ID NOW (07/04/2025 9:50 AM EDT) [facility] Rapid Strep A Screen Negative Negative, None Detected QC Media Lot # [id number] Lot# Expiration Date 52 Swab 07/04/2025 9:50 AM EDT Vangie Knott MD POINT OF CARE TEST EN TER/EDIT ORDERABLES Final Result * Pap Smear (09/25/2024 1:52 PM EDT) Swab Cervix uteri structure / Unknown 09/25/2024 1:52 PM EDT 09/26/2024 10:14 AM EDT Narrative [facility] - 10/07/2024 12:39 PM EST ----- ------- Name: Kylah Brasher Age/Sex: 58/F : 1965 Unit#: [id number] Attend Dr: PEPITO GONZALEZ Re09/25/24 Status: DEP REF Location: [facility] Disch: ----- ------- SPEC : [id number] RECD: 09/26/24 STATUS: MAYRA RICHARDSON NUM: [id number] JONAS: 09/25/24-[address] [facility] [address]: PEPITO GONZALEZ [facility] ENTERED: 09/26/24 SP TYPE: Pap Smr OTHR DR: ORDERED: Pap Smear Addendum Addendum 1 Entered: 10/07/24 HPV High Risk: Negative HPV Genotyping 16: Negative HPV Genotyping 18: Negative Addendum Signed (signature on file) David Obrien MD 10/07/241238 ----- ------- Interpretation Satisfactory for evaluation. Negative for intraepithelial lesion or malignancy. Clinical Information LMP: Unknown dte Previous PAP test: 2018, NIL HPV pos Material Received ThinPrep-Vaginal/Cervical ----- ------- Signed (signature on file) SALVATORE Hightower ([facility]) 10/02/24 1021 (signature on file) David Obrien MD 10/07/24 1239 ----- ------- END OF REPORT Pepito Gonzalez CNM LAB CYTOLOGY ORDERABLES F inal Result Performing Organization Address [facility] Co de Phone Number [facility] [address] [place] [address] [phone] * HPV mRNA E6/E7 w/Reflex to HPV Genotypes 16, 18/45 (09/25/2024 12:00 AM EDT) [facility] Provider LAB CYTOLOGY ORDERABLES F inal Result Performing Organization Address [facility] Co de Phone Number [facility] [address] [place] [address] [phone] * BI Mammogram Screening Tomosynthesis Bilateral (08/08/2024 1:00 PM EDT) Anatomical Region Laterality Modality Breast Bilateral Mammography 08/08/2024 1:00 PM EDT Narrative 08/21/2024 8:31 PM EDT [facility] [address] [place] [address] [place] [address] Mammography Report Signed Patient: Kylah Brasher MR#: [id number] [birth year] : 1965 Acct:[id number] Age/Sex: 58 / F ADM Date: 08/08/24 Loc: [facility] Attending Dr: Jody Wright CARBONATION EQUIPMENT OPERATOR Ordering Physician: Jody Wright CARBONATION EQUIPMENT OPERATOR Results: 1Nega tive Date of Service: 08/08/24 Follow Up: 1 Year From Orig inal Mammogram Procedure(s): MM tomosynthesis screening BI Accession Number(s): [id number] cc: Jody Wright CARBONATION EQUIPMENT OPERATOR EXAMINATION: MM SCREENING DIGITAL BREAST TOMOSYNTHESIS, BILATERAL CLINICAL INFORMATION: Screening. Asymptomatic. COMPARISON: Mammography: Comparison is made with available priors TECHNIQUE: Digital breast mammography with tomosynthesis is performed in both the craniocaudal and mediolateral oblique views along with computer-aided detection (CAD). FINDINGS: The breasts are heterogeneously dense, which may obscure small masses (ACR BI-RADS breast composition Category c). There are no significant masses, abnormal calcifications, or other abnormalities. MM/MM tomosynthesis screening BI IMPRESSION: No mammographic evidence of malignancy. ASSESSMENT: BI-RADS BI-RADS 1 - Negative RECOMMENDATION: Routine annual mammography screening. 1 year F/U This examination should not preclude the clinical evaluation of a suspicious palpable abnormality. This patient's information was entered into a reminder system with a target due date for their next mammogram. Electronically signed by: Adela London DO 08/21/2024 08:29 PM EDT Dictated By: Adela London DO Signed By: <Electronically signed by Adela London DO in OV> 08/21/242028 DD/ 1300 TD/TT: 08/08/24 1320 Lead Shop Operator: Procedure Note Donotuseinterpreter, Image - 08/21/2024 [facility] [address] [place] [place] [address] Mammography Report Signed Patient: Elizabeth BrashernMR#: [id number] [birth year] : 1965Acct:[id number] Age/Sex: 58 / FADM Date: 08/08/24 Loc: [facility] Attending Dr: Jody Wright CARBONATION EQUIPMENT OPERATOR Ordering Physician: Jody Wright FNPResults: 1Nega tive Date of Service: 08/08/24Follow Up: 1 Year From Orig inal Mammogram Procedure(s): MM tomosynthesis screening BI Accession Number(s): [id number] cc: [facility] EXAMINATION: MM SCREENING DIGITAL BREAST TOMOSYNTHESIS, BILATERAL CLINICAL INFORMATION: Screening. Asymptomatic. COMPARISON: Mammography: Comparison is made with available priors TECHNIQUE: Digital breast mammography with tomosynthesis is performed in both the craniocaudal and mediolateral oblique views along with computer-aided detection (CAD). FINDINGS: The breasts are heterogeneously dense, which may obscure small masses (ACR BI-RADS breast composition Category c). There are no significant masses, abnormal calcifications, or other abnormalities. MM/MM tomosynthesis screening BI IMPRESSION: No mammographic evidence of malignancy. ASSESSMENT: BI-RADS BI-RADS 1 - Negative RECOMMENDATION: Routine annual mammography screening. 1 year F/U This examination should not preclude the clinical evaluation of a suspicious palpable abnormality. This patient's information was entered into a reminder system with a target due date for their next mammogram. Electronically signed by: Adela London DO 08/21/2024 08:29 PM EDT Dictated By: Adela London DO Signed By: <Electronically signed by Adela London DO in OV> 08/21/242028 DD/ 1300 TD/TT: 08/08/24 1320 Lead Shop Operator: Result [facility] IMG BI PROCEDURES Edited Resu lt - Final * (ABNORMAL) POCT HGB A1C (04/09/2024 10:36 AM EDT) Pathologist [facility] Hemoglobin A1C 6.3(A) 4.0 - 6.0 % QC Media Lot # [id number] Lot# Expiration Date [id number] Blood 04/09/2024 10:3 6 AM EDT Result [facility] POINT OF CARE TEST ENTER/EDIT ORDERABLES Final Result * Hepatitis C Antibody with Reflex to HCV, RNA, Quantitative, Real-Time PCR (05/21/2023 2:52 PM EDT) Pathologist [facility] Hepatitis C Antibody NON-REACT JEFF NON-REACT JEFF [facility] [place] [employer] Comment: HCV antibody was non-reactive. There is no laboratory evidence of HCV infection. In most cases, no further action is required. However, if recent HCV exposure is suspected, a test for HCV RNA (test code 20913) is suggested. For additional information please refer to http://[employer].Aspectiva/faq/YAW24q9 (This link is being provided for informational/ educational purposes only.) Blood Venous blood specimen / Unknown 05/21/2023 2:52 PM EDT 05/21/2023 2:52 PM EDT [facility] LAB BLOOD ORDERABLES Final Re sult [facility] [address], [place] [address] [facility] [place] [email or web address] [address] [place] [phone] * HIV-1/2 Antigen and Antibodies, Fourth Generation, with Reflexes (05/21/2023 2:52 PM EDT) HIV Antigen/Antibody, 4th Generation NON-REAC TIVE NON-REAC TIVE [facility] [place] [employer] Comment: HIV-1 antigen and HIV-1/HIV-2 antibodies were not detected. There is no laboratory evidence of HIV infection. PLEASE NOTE: This information has been disclosed to you from records whose confidentiality may be protected by state law. If your state requires such protection, then the state law prohibits you from making any further disclosure of the information without the specific written consent of the person to whom it pertains, or as otherwise permitted by law. A general authorization for the release of medical or other information is NOT sufficient for this purpose. For additional information please refer to http://[employer].Aspectiva/faq/CQM505 (This link is being provided for informational/ educational purposes only.) The performance of this assay has not been clinically validated in patients less than 2 years old. Blood Venous blood specimen / Unknown 05/21/2023 2:52 PM EDT 05/21/2023 2:52 PM EDT [facility] LAB BLOOD ORDERABLES Final Re sult Performing Organization Address City/[facility]/ZIP Co de Phone Number [facility] [address], [place] [address] [facility] [place] [employer] [address] [place] [phone] * Lipid Panel, Standard (05/21/2023 2:52 PM EDT) [facility] Signature Cholesterol, Total 177 <200 mg/dL [facility] [place] [facility] HDL Cholesterol 58 > OR = 50 mg/dL [facility] Triglycerides 121 <150 mg/dL [facility] [place] [facility] LDL Cholesterol 97 mg/dL (calc) [facility] [place] [facility] Comment: Reference range: <100 Desirable range <100 mg/dL for primary prevention; <70 mg/dL for patients with CHD or diabetic patients with > or = 2 CHD risk factors. LDL-C is now calculated using the Chris-Scooby calculation, which is a validated novel method providing better accuracy than the Friedewald equation in the estimation of LDL-C. Chris SS et al. MICHELLE. 2013;310(19): 2407-8390 (http://education.Weatherista/faq/WJE985) Chol/HDLC Ratio 3.1 <5.0 (calc) [facility] [place] [facility] Non-HDL Cholesterol 119 <130 mg/dL (calc) [facility] [place] [facility] Comment: For patients with diabetes plus 1 major ASCVD risk factor, treating to a non-HDL-C goal of <100 mg/dL (LDL-C of <70 mg/dL) is considered a therapeutic option. Blood Venous blood specimen / Unknown 05/21/2023 2:52 PM EDT 05/21/2023 2:52 PM EDT [facility] LAB BLOOD ORDERABLES Final Re sult Performing Organization Address [facility]/ZIP Co de Phone Number [facility] [address], [facility] [place], [place] [id number] [employer] [address] [place] [address] from Last 3 Months or Most Recently Relevant to Health Maintenance [place] [address] [place] [address] C3 Care Teams Agriculture Instructor Relationship Specialty Start Date End Date Jody Wright FNP [address] [place] [address] PCP - General Family Medicine 07/24/22
--- OUTSIDE RECORDS SUMMARY | 2025-08-13 14:38 | XMS_ITS | Encounter Summary ---
Author Organization [employer] Address [address] 7t [place] [address] Care Team Providers Care Production Planning Manager Name Role Phone [facility] Primary Care Provider [phone] Reason for Visit * Reason Onset Date Comments Medication Question 12/12/2023 Encounter Details Date Type Department Care Team ([facility] st Contact Info) Description 12/12/2023 Telephone [facility] [address] [place], [place] [phone] [facility] [address] [place], [place] [phone] Medication Question Social History Tobacco Use Types Packs/Day Years Used Date Smoking Tobacco: Never Passive Smoke Exposure: Never Smokeless Tobacco: Never Alcohol Use Standard Drinks/Week Comments Never 0 (1 standard drink = 0.6 oz pur e alcohol) Depression Answer Date Recorded Patient Health Questionnaire-9 Score 0 05/21/2023 Housing Stability Answer Date Recorded What is [...] Date Recorded Patient Health Questionnaire-2 Score 0 05/21/2023 Comments Unknown Sex and Gender Information Value Date Recorded Sex Assigned at Female 09/25/2022 10:15 AM EDT Legal Sex Female 10:15 AM EDT Gender Identity Female 09/25/2022 10:15 AM EDT Sexual Orientation Straight 09/25/2022 10 :15 AM EDT documented as of this encounter Miscellaneous Notes * Telephone Encounter - Quynh Tello - 12/12/2023 3:14 PM EST Tc from pt requesting a call back in regards to visit yesterday with DR Mancia. documented in this encounter Plan of Treatment Upcoming Encounters Date Type Department Care Team (Late st Contact Info) Description 08/14/2025 1:00 PM EDT Office Visit [facility] [address] [place] [address] Jody Wright FNP [address] [place] [address] 09/29/2025 1:45 PM EST Office Visit [address] [address] Renita Story CNM [address] [place] [address] documented as of this encounter Visit Diagnoses Not on filedocumented in this encounter Additional Health Concerns Assessment Noted Time PHQ-9 Depression Total Score: 0 05/21/20 23 2:01 PM EDT documented as of this encounter Care Teams Production Planning Manager Relationship Specialty Start Date End Date Jody Wright FNP [address] [place] [phone] PCP - General Family Medicine 07/24/22 documented as of this encounter
== END 2025-08-13 12:31 | disposition home or self-care (01) ==
LOC: HO.MAMMO 12:30
PROVIDERS: PCP Registered Nurse; Visit Provider Registered Nurse
DX: Z12.31 Encounter for screening mammogram for malignant neoplasm of breast (principal)
CPT/HCPCS: 77063; 77067

== ENCOUNTER → 2025-08-13 13:00 | Outpatient (BNV) | payer MEDICAID, SELFPAY | PROVIDERS: PCP Registered Nurse; Visit Provider Internal Medicine | DX: Z12.31 Encounter for screening mammogram for malignant neoplasm of breast (principal) | CPT/HCPCS: 77063; 77067 ==

== ENCOUNTER 2025-08-14 13:48 | Outpatient (REF) | payer MEDICAID, SELFPAY ==
--- OUTSIDE RECORDS SUMMARY | 2025-08-14 13:00 | XMS_ITS | Encounter Summary ---
Author Organization [employer] Address [address] 7[address] [place] [address] Care Team Providers Care Instructional Assistant Name Role Phone Jody Wright [facility] Primary Care Provider [phone] Encounter Details Date Type Department Care Team (Late st Contact Info) Description 08/14/2025 1:00 PM EDT Office Visit [facility] [address] [place], [place] [phone] [facility] [address] [place] [address] Type 2 diabetes mellitus with hyperglycemia, without long-term current use of insulin ([facility]); Encounter for immunization Social History Tobacco Use Types Packs/Day Years Used Date Smoking Tobacco: Never Passive Smoke Exposure: Never Smokeless Tobacco: Never Alcohol Use Standard Drinks/Week Comments Never 0 (1 standard drink = 0.6 oz pur e alcohol) Depression Answer Date Recorded Patient Health Questionnaire-9 Score 4 08/14/2025 Patient Health Questionnaire-9 Score 4 08/14/2025 Last PHQ-9: Questionnaire Data Not on file 0 08/14/2025 Housing Stability Answer Date Recorded What is [...] Date Recorded Patient Health Questionnaire-2 Score 0 08/14/2025 Comments No Sex and Gender Information Value Date Recorded Sex Assigned at Female 09/25/2022 10:15 AM EDT Legal Sex Female 10:15 AM EDT Gender Identity Female 09/25/2022 10:15 AM EDT Sexual Orientation Straight 09/25/2022 10 :15 AM EDT documented as of this encounter Last Filed Vital Signs Vital Sign Reading Time Taken Comments Blood Pressure 106/62 08/14/2025 1:11 PM EDT Pulse 72 08/14/2025 1:11 PM EDT Temperature 36.4 C (97.5 F) 08/14/2025 1:11 PM EDT Respiratory Rate 20 08/14/2025 1:11 PM EDT Oxygen Saturation - - Inhaled Oxygen Concentration - - Weight 93 kg (205 lb) 08/14/2025 1:11 PM EDT Height 165.1 cm (5' 5 ) 08/14/2025 1:11 PM EDT Body Mass Index 34.11 08/14/2025 1:11 PM EDT documented in this encounter Functional Status * Over the past 2 weeks, how often have you been bothered by any of the following problems? Question Answer Date of Assessment Author Patient Health Questionnaire-2 Score 0 07/27 1:14 PM EDT Louisa Delgado MA * Little interest or pleasure in doing things Answer Date of Assessment Author Not at all 08/14/2025 1:14 PM EDT Louisa Delgado MA * Feeling down, depressed, or hopeless Answer Date of Assessment Author Not at all 08/14/2025 1:14 PM EDT Louisa Delgado MA * Trouble falling or staying asleep, or sleeping too much Answer Date of Assessment Author More than half the days 08/14/2025 1:14 PM EDT Louisa Warren MA * Feeling tired or having little energy Answer Date of Assessment Author More than half the days 08/14/2025 1:14 PM EDT Louisa Warren MA * Poor appetite or overeating Answer Date of Assessment Author Not at all 08/14/2025 1:14 PM EDT Louisa Delgado MA * Feeling bad about yourself - or that you are a failure or have let yourself or your family down Answer Date of Assessment Author Not at all 08/14/2025 1:14 PM EDT Louisa Delgado MA * Trouble concentrating on things, such as reading the newspaper or watching television Answer Date of Assessment Author Not at all 08/14/2025 1:14 PM EDT Louisa Delgado MA * Moving or speaking so slowly that other people could have noticed? Or the opposite - being so fidgety or restless that you have been moving around a lot more than usual. Answer Date of Assessment Author Not at all 08/14/2025 1:14 PM EDT Louisa Delgado MA * Thoughts that you would be better off or hurting yourself in some way Answer Date of Assessment Author Not at all 08/14/2025 1:14 PM EDT Louisa Delgado MA * Patient Health Questionnaire-9 Score Answer Date of Assessment Author 4 08/14/2025 1:14 PM EDT Louisa Delgado MA * How difficult have these problems made it for you to do your work, take care of things at home, or get along with other people? Answer Date of Assessment Author Not difficult at all 08/14/2025 1:14 PM EDT Louisa Jung MA * Over the last 2 weeks, how often have you been bothered by any of the following problems? Question Answer Date of Assessment Author Feeling nervous, anxious, or on edge 0 07/27 1:13 PM EDT Louisa Delgado MA Not being able to stop or co ntrol worrying 0 08/14/2025 1:13 PM EDT Louisa Delgado M A Worrying too much about diff erent things 0 08/14/2025 1:13 PM EDT Louisa Delgado M A Trouble relaxing 0 08/14/2025 1:13 PM EDT Louisa Warren MA Being so restless that it is hard to sit still 0 08/14/2025 1:13 PM EDT Louisa Delgado M A Becoming easily annoyed or irritable 0 07/27 1:13 PM EDT Louisa Delgado MA Feeling afraid as if somethi ng awful might happen 0 08/14/2025 1:13 PM EDT Louisa Delgado M A EDWIGE-7 Total Score 0 08/14/2025 1:13 PM EDT Louisa Delgado MA documented as of this encounter Plan of Treatment Upcoming Encounters Date Type Department Care Team (Late st Contact Info) Description 09/29/2025 1:45 PM EST Office Visit [facility] [address] [place], [place] [phone] Renita Story CNM [address] [place], [place] [phone] Scheduled Orders Name Type Priority Associated Diagnoses Orde r Schedule Albumin, Random Urine W/Creatinine Lab Routine Type 2 diabetes mellitus with hyperglycemia, without long-term current use of insulin ([facility]) Expected: 08/14/2025 (Approximate), Expires: 08/14/2026 Lipid Panel, Standard Lab Routine Type 2 diabetes mellitus with hyperglycemia, without long-term current use of insulin ([facility]) Expected: 08/14/2025 (Approximate), Expires: 08/14/2026 Basic Metabolic Panel Lab Routine Type 2 diabetes mellitus with hyperglycemia, without long-term current use of insulin ([facility]) Expected: 08/14/2025 (Approximate), Expires: 08/14/2026 documented as of this encounter Procedures Procedure Name Priority Date/Time Associated Diagnosis Comments POCT GLYCATED HEMOGLOBIN, TOTAL Routine 08/14/2025 1:18 PM EDT Type 2 diabetes mellitus with hyperglycemia, without long-term current use of insulin ([facility]) POCT GLUCOSE Routine 08/14/2025 1:15 PM EDT Type 2 diabetes mellitus with hyperglycemia, without long-term current use of insulin ([facility]) documented in this encounter Results * (ABNORMAL) POCT Hgb A1c (08/14/2025 1:18 PM EDT) Hemoglobin A1C 6.4(A) 4.0 - 5.7 % QC Media Lot # [id number] Lot# Expiration Date Blood 08/14/2025 1:18 PM EDT [facility] POINT OF CARE TEST ENTER/EDIT ORDERABLES Final Result * POCT Glucose (08/14/2025 1:15 PM EDT) Glucose Blood, POC 129 60 - 200 mg/dL Comment:fasting QC Media Lot # [id number] Lot# Expiration Date Blood Capillary blood specimen / Unknown 08/14/2025 1:15 PM EDT [facility] POINT OF CARE TEST ENTER/EDIT ORDERABLES Final Result documented in this encounter Visit Diagnoses Diagnosis Type 2 diabetes mellitus with hyperglycemia, without long-term current use of insulin ([facility]) Encounter for immunization documented in this encounter Additional Health Concerns Assessment Noted Time PHQ-9 Depression Total Score: 4 08/14/20 25 1:14 PM EDT documented as of this encounter Care Teams Instructional Assistant Relationship Specialty Start Date End Date Jody Wright FNP [address] [place] [address] PCP - General Family Medicine 07/24/22 documented as of this encounter
--- OUTSIDE RECORDS SUMMARY | 2025-08-14 13:55 | XMS_ITS | Encounter Summary ---
Author Organization [employer] Address [address] [facility] [address] [facility] 7t [place] [address] Care Team Providers Care Induction Coordination Power Engineer Name Role Phone [facility] Primary Care Provider [phone] Reason for Visit * Reason Onset Date Comments Medication Question 12/12/2023 Encounter Details Date Type Department Care Team ([facility] st Contact Info) Description 12/12/2023 Telephone [facility] [address] [place], [place] [phone] [facility] [address] [place], [place] [phone] Medication Question Social History Tobacco Use Types [...] Description 09/29/2025 1:45 PM EST Office Visit [facility] [address] [place] [address] Renita Story CNM [address] [place] [address] documented as of this encounter Visit Diagnoses Not on filedocumented in this encounter Additional Health Concerns Assessment Noted Time PHQ-9 Depression Total Score: 0 05/21/20 23 2:01 PM EDT documented as of this encounter Care Teams Induction Coordination Power Engineer Relationship Specialty Start Date End Date Jody Wright FNP [address] [place] [address] PCP - General Family Medicine 07/24/22 documented as of this encounter
--- OUTSIDE RECORDS SUMMARY | 2025-08-14 13:55 | XMS_ITS | Encounter Summary ---
Author Organization [employer] Address [address] [facility] 7t [place] [address] Care Team Providers Care Nerve Specialist Name Role Phone Adriana [facility] Primary Care Provider [phone] Reason for Visit * Reason Onset Date Comments chart prep 08/13/2025 Encounter Details Date Type Department Care Team ([facility] st Contact Info) Description 08/13/2025 Telephone [facility] [address] [place], [place] [phone] [facility] [address] [place] [address] chart prep Social History Tobacco Use Types [...] Description 09/29/2025 1:45 PM EST Office Visit [facility] [address] [place] [address] Renita Story CNM [address] [place] [address] documented as of this encounter Visit Diagnoses Not on filedocumented in this encounter Additional Health Concerns Assessment Noted Time PHQ-9 Depression Total Score: 0 04/09/20 24 10:34 AM EDT documented as of this encounter Care Teams Nerve Specialist Relationship Specialty Start Date End Date Jody Wright FNP [address] [place] [address] PCP - General Family Medicine 07/24/22 documented as of this encounter
--- OUTSIDE RECORDS SUMMARY | 2025-08-14 13:55 | XMS_ITS | Encounter Summary ---
Author Organization [employer] Address [address] [place] [address] Care Team Providers Care Precision Inspector Name Role Phone Jody Wright [employer] Primary Care Provider [phone] Encounter Details Date Type Department Care Team ([facility] st Contact Info) Description 03/23/2025 Orders Only [facility] [address] [place] [address] Meghna Sethi Social History Tobacco Use Types [...] Description 09/29/2025 1:45 PM EST Office Visit [facility] [address] [place], [place] [phone] Renita Story CNM [address] [place], [place] [phone] documented as of this encounter Procedures Procedure Name Priority Date/Time Associated Diagnosis Comments HPV MRNA E6/E7 REFLEX TO HPV 16, 18/45 Routine 09/25/2024 12:00 AM EDT documented in this encounter Results * HPV mRNA E6/E7 w/Reflex to HPV Genotypes 16, 18/45 (09/25/2024 12:00 AM EDT) us Historical Provider LAB CYTOLOGY ORDERABLES F inal Result [facility] [address] [place] [address] [phone] documented in this encounter Visit Diagnoses Not on filedocumented in this encounter Additional Health Concerns Assessment Noted Time PHQ-9 Depression Total Score: 0 04/09/20 24 10:34 AM EDT documented as of this encounter Care Teams Precision Inspector Relationship Specialty Start Date End Date Jody Wright FNP [address] [place] [address] PCP - General Family Medicine 07/24/22 documented as of this encounter
--- OUTSIDE RECORDS SUMMARY | 2025-08-14 13:55 | XMS_ITS | Clinical Summary ---
Author Organization [employer] Address [address] [place] [address] Care Team Providers Care [employer] Teacher Name Role Phone Jody Wright [facility] Primary Care Provider [phone] Allergies No known active allergies Medications lidocaine (Lidoderm) 5 % patchIndication s:Chronic right-sided low back pain without sciatica Apply 1 patch topically in the morning. Remove & discard patch within 12 hours or as directed by MD. 30 patch 1 01/18/20 23 Active bacitracin-poly myxin b (Polysporin) ointment Apply topically 2 times daily. 15 g 03/23/20 23 Active hydrocortisone (Anusol-HC) 2.5 % rectal creamIndication s:Rectal itching Apply topically twice daily for two weeks 28 g 07/10/20 23 Active hydrocortisone 2.5 % creamIndication s:Rash Apply topically 2 times daily. 3.5 g 1 04/09/20 24 Active EPINEPHrine (Epipen) 0.3 MG/0.3ML [...] REPLACE CAP. 48 mL 06/12/20 25 Active levocetirizine (Xyzal) 5 MG tabletIndicatio ns:Environmenta l and seasonal allergies Take 1 tablet (5 mg) by mouth Once per day. 90 tablet 3 07/23/20 25 Active atorvastatin (Lipitor) 10 MG tabletIndicatio ns:Type 2 diabetes mellitus with hyperglycemia, without long-term current use of insulin (CMS/HCC) Take 1 tablet (10 mg) by mouth Once per day. 30 tablet 11 08/14/20 25 026 Active Alcohol Swabs (Alcohol Prep) padsIndications :Type 2 diabetes mellitus with hyperglycemia, without long-term current use of insulin (CMS/HCC) Use one pad each to prep skin prior to injection as directed 100 each 11 08/14/20 25 Active Lancets 33G miscIndications :Type 2 diabetes mellitus with hyperglycemia, without long-term current use of insulin (CMS/HCC) Use as directed to check blood sugar four times daily 100 each 3 08/14/20 25 Active Blood Glucose Monitoring Suppl (GNP Easy Touch Glucose Meter) deviceIndicatio ns:Type 2 diabetes mellitus with hyperglycemia, without long-term current use of insulin (CMS/HCC) Use as directed to check blood sugar four times daily 1 each 08/14/20 25 Active glucose blood test stripIndication s:Type 2 diabetes mellitus with hyperglycemia, without long-term current use of insulin (CMS/HCC) Use as directed to check blood sugar four times daily 100 each 12 08/14/20 25 Active rosuvastatin (Crestor) 10 MG tabletIndicatio ns:Type 2 diabetes mellitus with hyperglycemia, without long-term current use of insulin (CMS/HCC) Take 1 tablet (10 mg) by mouth Once per day. 30 tablet 11 04/09/20 24 025 Discontinued Nirmatrelvir&Ri tonavir 300/100 (Paxlovid, 300/100,) 20 x 150 MG & 10 x 100MG tablet therapy packIndications :COVID Take 1 Dose by mouth 2 times daily. 10 each 07/04/20 25 025 Discontinued levocetirizine (Xyzal) 5 MG tablet Take 1 tablet by mouth Once per day. 04/17/20 25 025 Discontinued(Re order (will not trigger notification to Pharmacy)) Active Problems Problem Noted Date Diagnosed Date History of COVID-19 07/04/2025 Assessment & Plan (07/04/2025 10:14 AM EDT): Advised to drink plenty of fluids and rest I will prescribe for patient Ericka, medication side effects and directions with other [...] need records [facility], need records C-scope: [facility] several years ago, need records Assessment & [...] Encounters Date Type Department Care Team Description 08/14/2025 1:00 PM EDT Office Visit [facility] [address] [place] [address] Jody Wright FNP Type 2 diabetes mellitus with hyperglycemia, without long-term current use of insulin ([facility]); Encounter for immunization 08/14/2025 Travel 08/13/[address] [address] Jody Wright FNP chart prep 07/22/[address] [address] Jody Wright FNP Environmental and seasonal allergies 07/10/2025 Telephone [facility] [address] [place] [address] Remedios Porras [place] 07/09/2025 1:20 PM EDT Office Visit [facility] [address] [place] [address] Barbara Eason DO COVID-19 07/09/2025 Travel 07/08/[address] [address] Jody Wright FNP Nurse Triage 07/04/2025 10:00 AM EDT Office Visit [facility] [address] [place] [address] Vangie Sanchez MD COVID (Primary Dx); Sore throat 07/04/2025 Travel 07/03/[address] [address] Jody Wright FNP Nurse Triage 06/26/[address] [address] Jody Wright FNP Appointment Request 06/26/2025 Travel 06/12/2025 Refill [facility] [address] [place] [address] Arely Poe, CLAIRE Sore throat; Mild intermittent asthma without complication from Last 3 Months Immunizations Immunization Administration Dates Next Due Influenza injectable quadriv alent preservative free 09/10/2023,02/13/2019,09/04/2017 Influenza, IIV3, injectable 10/02/2011 Influenza, Split (incl. justo fied surface antigen) 12/23/2012 Pneumococcal Conjugate PCV 20 08/14/2025 Tdap 07/16/2018 Family History Medical History Relation [...] is your housing situation today? I have narendramark cheema 09/10/[address] you [...] 20 08/14/2025 1:11 PM EDT Oxygen Saturation 97% 07/09/2025 12:59 PM EDT Inhaled Oxygen Concentration - - Weight 93 kg (205 lb) 08/14/2025 1:11 PM EDT Height 165.1 cm (5' 5 ) 08/14/2025 1:11 PM EDT Body Mass Index 34.11 08/14/2025 1:11 PM EDT Plan of Treatment Upcoming Encounters Date Type Department Care Team (Late st Contact Info) Description 09/29/2025 1:45 PM EST Office Visit [facility] [address] [place], [place] [phone] Pepito Gonzalez, CN [address] [place] [address] Health Maintenance Due Date Last Done Comments CT Colonography 1965 Colonoscopy 1965 Colorectal Cancer Screening 1965 FIT DNA/Cologuard 1965 FIT 1965 FOBT 1965 Sigmoidoscopy 1965 Disability Screening 1964 Alcohol/Substance Use Screening 1976 Diabetes: Urine Protein Screening 1983 Zoster Vaccines (1 of 2) 2014 Lipid Panel 05/21/2024 05/21/2023 SDOH Screening 05/21/2024 05/21/2023 Diabetes: Foot Exam 09/10/2024 09/10/2023, 09/10/2023, 09/10/2023, Additional history exists RSV Patients and Patients Aged 60 years or older (1 - Risk 60-74 years 1-dose series) 2024 Depression Screening 04/09/2025 04/09/2024, 04/09/20 24 COVID-19 Vaccine ( season) 2025 Influenza Vaccine (#1) 2025 , 02/13/2019, 09/04/2017, Additional history exists Mammogram 08/08/2025 08/08/2024, 05/27, 08/20/2018 Diabetes: Hemoglobin A1C 02/11/2026 025, 04/09/2024, 01/09/2024, Additional history exists Eye Exam 03/26/2026 03/26/2024 Tobacco Screening 07/09/2026 07/09/2025 Cervical Cancer Screening 09/25/2027 HPV/Cotest 09/25/2027 09/25/2024, 03/26, 08/06/2018 Pap Smear 09/25/2027 09/25/2024, 04/04/2022 DTaP/Tdap/Td Vaccines (2 - Td or Tdap) 07/16/2028 07/16/2018 HIV Screening Completed 05/21/2023 Hepatitis C Screening Completed 05/21/2023 Pneumococcal Vaccine: 50+ Years Completed 08/14/2025 HIB Vaccines Aged Out No longer eligi [...] hyperglycemia, without long-term current use of insulin ([facility]) POCT GLUCOSE Routine 08/14/2025 1:15 PM EDT Type 2 diabetes mellitus with hyperglycemia, without long-term current use of insulin ([facility]) POCT RAPID COVID ANTIGEN Routine 07/09/2025 1:33 [...] PM EDT Breast cancer screening by mammogram HEPATITIS C AB W/REFL TO HCV RNA, [...] Recently Relevant to Health Maintenance Results * (ABNORMAL) POCT Hgb A1c (08/14/2025 1:18 PM EDT) [facility] Hemoglobin A1C 6.4(A) 4.0 - 5.7 % QC Media Lot # [id number] Lot# Expiration Date 242, Blood 08/14/2025 1:18 PM EDT Result [facility] POINT OF CARE TEST ENTER/EDIT ORDERABLES Final Result * POCT Glucose (08/14/2025 1:15 PM EDT) [facility] Glucose Blood, POC 129 60 - 200 mg/dL Comment:fasting QC Media Lot # [id number] Lot# Expiration Date Blood Capillary blood specimen / Unknown 08/14/2025 1:15 PM EDT Result [facility] POINT OF CARE TEST ENTER/EDIT ORDERABLES Final Result * POCT Rapid COVID Ag (07/09/2025 1:33 PM EDT) Only the most recent of2 resultswithin the time period is included. [facility] Rapid COVID Ag Negative Swab 07/09/2025 1:33 PM EDT Result [facility] Barbara Eason DO POINT OF CARE TEST ENTER/HELGA T ORDERABLES Final Result * POCT Rapid Influenza B SHAHID ID NOW (07/04/2025 10:13 AM EDT) [facility] Influenza B Negative Negative, Indeterminate [facility] QC Media Lot # [id number] [facility] Lot# Expiration Date 82 [facility] Swab 07/04/2025 10:1 3 AM EDT Vangie Knott MD POINT OF CARE TEST EN TER/EDIT ORDERABLES Final Result Performing Organization Address [facility] Co de Phone Number [facility] [address] [place] [phone] * POCT Rapid Influenza A SHAHID ID NOW (07/04/2025 10:12 AM EDT) Influenza A Negative Negative, Indeterminate [facility] QC Media Lot # [id number] [facility] Lot# Expiration Date [facility] Swab 07/04/2025 10:1 2 AM EDT Vangie Knott MD POINT OF CARE TEST EN TER/EDIT ORDERABLES Final Result Performing Organization Address [facility] de Phone Number [facility] [address] [place] [phone] * POCT Rapid Strep A SHAHID ID NOW (07/04/2025 9:50 AM EDT) Pathologist [facility] Rapid Strep A Screen Negative Negative, None Detected QC Media Lot # [id number] Lot# Expiration Date Swab 07/04/2025 9:50 AM EDT us Vangie Knott MD POINT OF CARE TEST EN TER/EDIT ORDERABLES Final Result * Pap Smear (09/25/2024 1:52 PM EDT) Swab Cervix uteri structure / Unknown 09/25/2024 1:52 PM EDT 09/26/2024 10:14 AM EDT Narrative [facility] - 10/07/2024 12:39 PM EST ----- ------- Name: Kylah Brasher Age/Sex: 58/F : 1965 Unit#: [id number] Attend Dr: PEPITO GONZALEZ CNM Re09/25/24 Status: DEP REF Location: [facility] Disch: ----- ------- SPEC : [id number] RECD: 09/26/24 STATUS: MAYRA RICHARDSON NUM: [id number] JONAS: 09/25/24-[address] [facility] [address]: PEPITO GONZALEZ [facility] ENTERED: 09/26/24 SP TYPE: Pap Smr [...] ------- Signed (signature on file) SALVATORE Hightower ([facility] 10/02/24 1021 (signature on file) David Obrien MD 10/07/24 1239 ----- ------- END OF REPORT Pepito Gonzalez CNM LAB CYTOLOGY ORDERABLES F inal Result Performing Organization Address [facility] Co de Phone Number [facility] [address] [place] [address] [phone] * HPV mRNA E6/E7 w/Reflex to HPV Genotypes 16, 18/45 (09/25/2024 12:00 AM EDT) Historical Provider LAB CYTOLOGY ORDERABLES F inal Result Performing Organization Address [facility] Co de Phone Number [facility] [address] [place] [address] [phone] * BI Mammogram Screening Tomosynthesis Bilateral (08/08/2024 1:00 PM EDT) Anatomical Region Laterality Modality Breast Bilateral Mammography 08/08/2024 1:00 PM EDT Narrative 08/21/2024 8:31 PM EDT [facility] [address] [place] [address] [place] [address] Mammography Report Signed Patient: Kylah Brasher MR#: [id number] [birth year] : 1965 Acct:[id number] Age/Sex: 58 / F ADM Date: 08/08/24 Loc: MAMMO Attending Dr: Jody ARROYO Ordering Physician: Jody Wright Results: 1Nega tive Date of Service: 08/08/24 Follow Up: 1 Year From Orig inal Mammogram Procedure(s): MM tomosynthesis screening BI Accession Number(s): [id number] cc: Jody Wright HOOP MAKER MACHINE EXAMINATION: MM SCREENING DIGITAL BREAST TOMOSYNTHESIS, BILATERAL [...] OV> 08/21/242028 DD/ 1300 TD/TT: 08/08/24 1320 Travel Pt: Procedure Note Donotuseinterpreter, Image - 08/21/20[facility] [address] [place] [address] Mammography Report Signed Patient: Tia Brasher#: [id number] 75 : 1965Acct:[id number] Age/Sex: 58 / FADM Date: 08/08/24 Loc: ANALI Attending Dr: Jody ARROYO Ordering Physician: Jody Wright FNPResults: 1Nega tive Date of Service: 08/08/24Follow Up: 1 Year From Orig inal Mammogram Procedure(s): MM tomosynthesis screening BI Accession Number(s): [id number] cc: [place] HOOP MAKER MACHINE EXAMINATION: MM SCREENING DIGITAL BREAST TOMOSYNTHESIS, BILATERAL [...] Adela London DO 08/21/2024 08:29 PM EDT RP Dictated By: Adela London DO Signed By: <Electronically signed by Adela London DO in OV> 08/21/242028 DD/ 1300 TD/TT: 08/08/24 1320 Travel Pt: [facility] HOOP MAKER MACHINE IMG BI PROCEDURES Edited Resu lt - Final * Hepatitis C Antibody with Reflex to HCV, RNA, Quantitative, Real-Time PCR (05/21/2023 2:52 PM EDT) Hepatitis C Antibody NON-REACT JEFF NON-REACT JEFF [employer] [facility] Comment: HCV antibody was non-reactive. There is no laboratory evidence of HCV infection. In most cases, no further action is required. However, if recent HCV exposure is suspected, a test for HCV RNA (test code 26152) is suggested. For additional information please refer to http://education.[employer]/faq/VCS12i5 (This link is being provided for informational/ educational purposes only.) Blood Venous blood specimen / Unknown 05/21/2023 2:52 PM EDT 05/21/2023 2:52 PM EDT [facility] LAB BLOOD ORDERABLES Final Re sult Performing Organization Address City/[facility]/ZIP Co de Phone Number [facility] [address], [place] [phone] [employer] [place] [facility] [address] [place] [address] * HIV-1/2 Antigen and Antibodies, Fourth Generation, with Reflexes (05/21/2023 2:52 PM EDT) [facility] HIV Antigen/Antibody, 4th Generation NON-REAC TIVE NON-REAC TIVE [facility] [place] [facility] [place] Comment: HIV-1 antigen and HIV-1/HIV-2 antibodies were [...] purpose. For additional information please refer to http://education.[employer].GeriJoy/faq/YFV879 (This link is being provided for informational/ educational purposes only.) The performance of this assay has not been clinically validated in patients less than 2 years old. Blood Venous blood specimen / Unknown 05/21/2023 2:52 PM EDT 05/21/2023 2:52 PM EDT [facility] LAB BLOOD ORDERABLES Final Re sult [facility] [address], [place] [address] [employer] [place] [facility] [address] [place] [phone] * Lipid Panel, Standard (05/21/2023 2:52 PM EDT) Cholesterol, Total 177 <200 mg/dL [employer] [place] [facility] HDL Cholesterol 58 > OR = 50 mg/dL [employer] [place] [facility] Triglycerides 121 <150 mg/dL [employer] [place] [facility] LDL Cholesterol 97 mg/dL (calc) [employer] [place] [facility] Comment: Reference range: <100 Desirable range <100 mg/dL for primary prevention; <70 mg/dL for patients with CHD or diabetic patients with > or = 2 CHD risk factors. LDL-C is now calculated using the Malcom calculation, which is a validated novel method providing better accuracy than the Friedewald equation in the estimation of LDL-C. Chris SS et al. MICHELLE. 2013;310(19): 9561-2385 (http://education.Worldscape/faq/HFA988) Chol/HDLC Ratio 3.1 <5.0 (calc) [employer] [place] [facility] Non-HDL Cholesterol 119 <130 mg/dL (calc) [employer] [place] [facility] Comment: For patients with diabetes plus 1 major ASCVD risk factor, treating to a non-HDL-C goal of <100 mg/dL (LDL-C of <70 mg/dL) is considered a therapeutic option. Blood Venous blood specimen / Unknown 05/21/2023 2:52 PM EDT 05/21/2023 2:52 PM EDT [facility] LAB BLOOD ORDERABLES Final Re sult [facility] [address], [place] [address] [employer] [place] [facility] [address] [place] [address] from Last 3 Months or Most Recently Relevant to Health Maintenance Insurance * Guarantor: Kylah Brasher Account Type Relation to Patient Date of Phone Billing Address Personal/Family Self [address] [facility] [address] [place] [phone] [place] [address] C3 * Guarantor: Kylah Brasher Account Type Relation to Patient Date of Phone Billing Address Personal/Family Self [phone] [place] [phone] Care Teams [employer] Technology Teacher Relationship Specialty Start Date End Date Jody Wright FNP [address] [place] [phone] PCP - General Family Medicine 07/24/22
--- OUTSIDE RECORDS SUMMARY | 2025-08-14 13:56 | XMS_ITS | Encounter Summary ---
Author Organization [employer] Address [address] [place] [address] Care Team Providers Care Model Builder Display Name Role Phone Jody Wright INTERNET DESIGNER Primary Care Provider [phone] Encounter Details Date Type Department Care Team (Latest Contact Info) Description 08/14/2025 Travel Social History Tobacco Use Types Packs/Day Years [...] AM EDT documented as of this encounter Functional Status * Over the [...] Description 09/29/2025 1:45 PM EST Office Visit [facility] [address] [place] [address] Renita Story CNM [address] [place] [address] documented as of this encounter Visit Diagnoses Not on filedocumented in this encounter Additional Health Concerns Assessment Noted Time PHQ-9 Depression Total Score: 4 08/14/20 25 1:14 PM EDT documented as of this encounter Care Teams Model Builder Display Relationship Specialty Start Date End Date [place] [facility] Vera [address] [place] [address] PCP - General Family Medicine 07/24/22 documented as of this encounter
[2025-08-14 16:36] LABS: Anion Gap 11 (12-20); Blood Urea Nitrogen 13 mg/dL (9-16); Calcium 9.0 mg/dL (8.4-10.2); Carbon Dioxide 26 mmol/L (22-29); Chloride 108 mmol/L (96-108); Cholesterol 170 mg/dL (<200); Estimated Glomerular Filt Rate > 60; HDL Cholesterol 49 mg/dL (>40); Potassium 4.7 mmol/L (3.3-5.1); Sodium 140 mmol/L (135-145); Triglycerides 122 mg/dL (<150)
== END 2025-08-14 13:49 | disposition home or self-care (01) ==
LOC: HO.HHCL 13:48
PROVIDERS: PCP Registered Nurse; Visit Provider Registered Nurse
DX: E11.65 Type 2 diabetes mellitus with hyperglycemia (principal)
CPT/HCPCS: 36415; 80048; 80061